=== PATIENT | female | born 1940 | race Caucasian/White ===

== ENCOUNTER 2024-10-07 11:51 | Inpatient (IN) | payer MEDICARE, SELFPAY ==
[2024-10-07] VITALS (14 sets, daily range): BP systolic 94–126; BP diastolic 54–77; PULSE 61–75; RESP 18–22; TEMP 36.4–37.1; O2SAT 97–100; BMI 30.7
--- NOTE | ~2024-10-07 | CT_ITS ---
EXAMINATION: CT brain wo con DATE: 10/07/2024 13:31 INDICATION: Headache TECHNIQUE: Computed tomography (CT) of the head was performed without intravenous contrast. Sagittal and coronal reconstructions were performed. The mA was adjusted according to patient size. Iterative reconstruction technique was employed. The dose-length product was 605.33 mGy-cm. COMPARISON: None FINDINGS: No acute intracranial hemorrhage, acute infarction or abnormal extra axial fluid collection. Small ol d lacunar infarct at the left basal ganglia. There is mild scattered white matter hypoattenuation con sistent with chronic small vessel ischemic disease. Symmetric prominence of the sulci and ventricles consistent with mild moderate age-appropriate diffuse cerebral volume loss. No mass/mass effect. Katarina nges of bilateral intraocular lens replacement. The orbits and mastoid air cells are normal. No mucos al thickening in the anterior right ethmoid sinus. IMPRESSION: 1. 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 No acute intracranial process. 2. Age-related changes including mild to moderate diffuse on loss and mild scattered white matter hyp oattenuation consistent with chronic small vessel ischemic disease. Reviewed, dictated and finalized at location B. 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 No acute intracranial process. 2. Age-related changes including mild to moderate diffuse on loss and mild scat tered white matter hypoattenuation consistent with chronic small vessel ischemi c disease.
--- NOTE | ~2024-10-07 | XR_ITS ---
EXAMINATION: XR chest 2V DATE: 10/07/2024 13:37 INDICATION: Shortness of breath. TECHNIQUE: Frontal and lateral views of the chest were obtained. COMPARISON: None. FINDINGS: The lung volumes are normal. There is a diffuse interstitial pattern in the lungs. No pleur al effusion or pneumothorax. The heart size is normal. IMPRESSION: 1. Interstitial pattern in the lungs, consistent with mild pulmonary edema versus chronic interstitia l lung disease. Reviewed, dictated and finalized at location A. [facility] IMPRESSION: 1. Interstitial pattern in the lungs, consistent with mild pulmonary edema vers us chronic interstitial lung disease.
--- NOTE | 2024-10-07 13:18 | ED.SOB ---
HPI - SOB/Dyspnea General Chief Complaint: Shortness of Breath/Dyspnea <Christianne Valerio PA-C - Last Filed: 10/08/24 10:08> Stated Complaint: SOB, h/a <Christianne Valerio PA-C - Last Filed: 10/08/24 10:08> Time Seen by Provider: 10/07/24 13:18 <Christianne Valerio PA-C - Last Filed: 10/08/24 10:08> Focused HPI: This is a 84 year old female that presents to the ER for headache. Ongoing intermittently since last night. She took Ibuprofen last night. Reports she woke up this morning grabbing her head and crying. She has also been short of breath over the last couple of weeks. Concerned for aspiration. GENERAL: Well-appearing, well-nourished, and in no acute distress. HEAD: Normocephalic, atraumatic. CHEST: No respiratory distress. Lung sounds coarse HEART: Regular rate and rhythm.? NEURO: ?Alert and oriented x3. Patient screened in triage and initial orders placed.? ?Additional care and disposition to be based upon?diagnostic testing and treatment. <Christianne Valeiro PA-C - Last Filed: 10/08/24 10:08> History of Present Illness HPI Narrative: Patient is an 84-year-old female presents emergency department with chief complaint of headache and shortness of breath. Patient has been having episodes where she grabs the back behind her ear and states that it hurts the patient also has been more short of breath over the last couple of weeks family is concerned that she may be aspirating. As they have noticed that she coughs more after she eats <Hi Manzo MD - Last Filed: 10/07/24 18:36> Related Data Home Medications: Home Medications ?Medication ?Instructions ?Recorded ?Confirmed ?Last Taken ?Type alendronate 70 mg tablet 70 mg PO WEEKLY 10/07/24 10/07/24 10/07/24 History aspirin 81 mg tablet,delayed 81 mg PO DAILY 10/07/24 10/07/24 10/07/24 History release (Adult Low Dose Aspirin) atorvastatin 40 mg tablet 40 mg PO QHS 10/07/24 10/07/24 10/07/24 History coQ10 (ubiquinol) 100 mg capsule 100 mg PO DAILY 10/07/24 10/07/24 10/07/24 History (Qunol Yonathan CoQ10) donepezil 10 mg tablet 10 mg PO DAILY 10/07/24 10/07/24 10/07/24 History fenofibrate 160 mg tablet 160 mg PO DAILY 10/07/24 10/07/24 10/07/24 History isosorbide mononitrate 30 mg 30 mg PO DAILY 10/07/24 10/07/24 10/07/24 History tablet,extended release 24 hr levothyroxine 88 mcg tablet 88 mcg PO DAILY@0630 10/07/24 10/07/24 10/07/24 History lisinopril 10 mg tablet 10 mg PO DAILY 10/07/24 10/07/24 10/07/24 History memantine 10 mg tablet 20 mg PO DAILY 10/07/24 10/07/24 10/07/24 History metoprolol succinate 25 mg 25 mg PO DAILY 10/07/24 10/07/24 10/07/24 History tablet,extended release 24 hr nifedipine 30 mg tablet,extended 30 mg PO DAILY 10/07/24 10/07/24 10/07/24 History release 24 hr om ocuview 1 cap PO DAILY 10/07/24 10/07/24 10/07/24 History <Christianne Valerio PA-C - Last Filed: 10/08/24 10:08> Review of Systems Review of Systems: A 10 system review of systems was completed on the patient and is negative except for what is stated in the HPI. Nursing and ancillary documentation was reviewed. <Hi Manzo MD - Last Filed: 10/07/24 18:36> [facility] Past Medical History Medical History: Medical History (Updated 10/08/24 @ 10:08 by Christianne Valerio PA-C) Dementia Dyslipidemia Hypertension <Christianne Valerio PA-C - Last Filed: 10/08/24 10:08> Family History Family History: Family History (Updated 10/07/24 @ 22:43 by Kathy Luis, JOSE) Father Alzheimer dementia UTI (urinary tract infection) Mother UTI (urinary tract infection) <Christianne Valerio PA-C - Last Filed: 10/08/24 10:08> Social History Social History: Social History Smoking status: Former smoker Tobacco type: cigarettes Alcohol intake: never Substance use: never Substance use type: does not use Do You Feel Safe in your Home?: Yes Lack of Transportation: No Lack of Food: Never True Current Housing: I Have Housing Concerned About Future Housing: No Difficulty Paying Gas/Electric Bills: No Difficulty Paying for Meds: No Currently Unemployed: No Education: High School Diploma/GED Difficulty w/ Childcare or Family Care: No Spiritual care concerns: No <Christianne Valerio PA-C - Last Filed: 10/08/24 10:08> Exam Narrative: GENERAL: Well-appearing, well-nourished, and in no acute distress. HEAD: Normocephalic, atraumatic. EYES: PERRLA and EOMI. ENT: Nares clear, no rhinorrhea or epistaxis. Mucous membranes moist. NECK: Supple. CHEST: Clear to auscultation. No respiratory distress. HEART: Regular rate and rhythm. No murmur heard. Normal peripheral pulses. ABDOMEN: Soft, nontender, nondistended, normal active bowel sounds. EXTREMITIES: Normal range of motion. No edema. SKIN: Warm, dry, no rash. NEURO: No focal deficits. Alert and oriented to baseline, pleasantly confused. PSYCH: Normal mood and affect. <Hi Manzo MD - Last Filed: 10/07/24 18:36> Course Vital Signs Vital signs: Vital Signs Temperature 97.6 F 10/07/24 11:53 Pulse Rate 75 10/07/24 11:53 Respiratory Rate 18 10/07/24 11:53 Blood Pressure 94/75 L 10/07/24 11:53 Pulse Oximetry 98 10/07/24 11:53 Temperature 98.3 F 10/08/24 05:56 Pulse Rate 60 10/08/24 09:00 Respiratory Rate 20 10/08/24 05:56 Blood Pressure 125/63 10/08/24 05:56 Pulse Oximetry 96 10/08/24 05:56 Oxygen Delivery Room Air 10/07/24 22:41 <Christianne Valerio PA-C - Last Filed: 10/08/24 10:08> Vital Signs Temperature 97.6 F 10/07/24 11:53 Pulse Rate 75 10/07/24 11:53 Respiratory Rate 18 10/07/24 11:53 Blood Pressure 94/75 L 10/07/24 11:53 Pulse Oximetry 98 10/07/24 11:53 Temperature 98.3 F 10/08/24 05:56 Pulse Rate 60 10/08/24 09:00 Respiratory Rate 20 10/08/24 05:56 Blood Pressure 125/63 10/08/24 05:56 Pulse Oximetry 96 10/08/24 05:56 Oxygen Delivery Room Air 10/07/24 22:41 <Hi Manzo MD - Last Filed: 10/07/24 18:36> MDM - SOB/Dyspnea MDM Narrative Medical decision making narrative: EKG showed no acute ischemic changes CT head was obtained that showed1. 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 No acute intracranial process. 2. Age-related changes including mild to moderate diffuse on loss and mild scattered white matter hypoattenuation consistent with chronic small vessel ischemic disease. Chest x-ray showed 1. Interstitial pattern in the lungs, consistent with mild pulmonary edema versus chronic interstitial lung disease COVID flu and RSV were negative Electrolytes showed T BUN of 50 and a creatinine 1.4 troponin was negative with of <Hi Manzo MD - Last Filed: 10/07/24 18:36> Lab Data Result diagrams: 10/08/24 05:45 10/08/24 05:45 <Christianne Valerio PA-C - Last Filed: 10/08/24 10:08> Labs: Lab Results 10/07/24 10/08/24 10/08/24 Range/Units 15:39 03:56 05:45 WBC 10.5 H 7.7 (4.5-10.0) K/mm3 RBC 3.41 L 3.48 L (4.2-5.4) M/mm3 Hgb 11.4 L 11.7 L (12.0-15.0) g/dL Hct 34.5 L 34.7 L (37.0-47.0) % MCV 101.2 H 99.7 (80-100) fl MCH 33.4 33.6 (26-34) pg MCHC 33.0 33.7 (32-36) g/dl RDW 12.4 12.2 (11.5-14.5) % Plt Count 212 207 (150-375) k/mm3 MPV 9.6 9.8 (7.4-10.4) fl Immature Gran % (Auto) 0.6 H 0.4 (0-0.5) % Neut % (Auto) 64.3 54.1 (45.5-73.1) % Lymph % (Auto) 13.2 L 22.2 (18.3-44.2) % Bulloch % (Auto) 20.2 H 19.9 H (2.6-8.5) % Eos % (Auto) 0.9 2.5 (0-4.4) % Baso % (Auto) 0.8 0.9 (0.2-1.2) % Lymph # (Auto) 1.39 1.70 (0.9-3.2) K/mm3 Bulloch # (Auto) 2.1 H 1.5 H (0.1-0.6) K/mm3 Eos # (Auto) 0.1 0.2 (0-0.3) K/mm3 Baso # (Auto) 0.1 0.1 (0.0-0.1) K/mm3 Abs Immat Gran (auto) 0.06 H 0.03 (0.00-0.031) K/mm3 Absolute Neuts (auto) 6.8 H 4.1 (1.3-6.7) K/mm3 Absolute Nucleated RBC 0.000 0.000 (0.0-0.012) K/mm3 Nucleated RBC % 0.0 0.0 (0.0-0.2) % PT 15.9 H (11.1-14.7) Seconds INR 1.2 APTT 30.8 (22.3-36.8) Seconds Sodium 136 L 137 (137-145) mmol/L Potassium 4.6 4.5 (3.4-5.0) mmol/L Chloride 103 104 (98-107) mmol/L Carbon Dioxide 21 L 22 (22-30) mmol/L Anion Gap 12 11 (4-12) mmol/L BUN 50 H 48 H (7-17) mg/dL Creatinine 1.40 H 1.20 H (0.7-1.0) mg/dL Estim Creat Clear Calc 25 29 ml/min Estimated GFR 36 L 43 L (59 - ) Glucose 102 99 (65-110) mg/dL Calcium 9.3 9.2 (8.4-10.2) mg/dL Total Bilirubin 0.6 0.6 (0.2-1.3) mg/dL AST 48 H 54 H (14-36) U/L ALT 45 H 58 H (6-35) U/L Alkaline Phosphatase 49 53 (38-126) U/L Troponin I < 0.012 < 0.012 (0.000-0.034) ng/mL NT-Pro-B Natriuret Pep 1220 H (19.9-100) pg/mL Total Protein 8.0 8.0 (6.3-8.2) g/dL Albumin 4.0 3.9 (3.5-5.1) g/dL Influenza A (RT-PCR) Negative (Negative) Influenza B (RT-PCR) Negative (Negative) RSV (RT-PCR) Negative (Negative) SARS-CoV-2 RNA (RT-PCR) Negative (Negative) <Christianne Valerio PA-C - Last Filed: 10/08/24 10:08> Lab Results 10/07/24 10/08/24 10/08/24 Range/Units 15:39 03:56 05:45 WBC 10.5 H 7.7 (4.5-10.0) K/mm3 RBC 3.41 L 3.48 L (4.2-5.4) M/mm3 Hgb 11.4 L 11.7 L (12.0-15.0) g/dL Hct 34.5 L 34.7 L (37.0-47.0) % MCV 101.2 H 99.7 (80-100) fl MCH 33.4 33.6 (26-34) pg MCHC 33.0 33.7 (32-36) g/dl RDW 12.4 12.2 (11.5-14.5) % Plt Count 212 207 (150-375) k/mm3 MPV 9.6 9.8 (7.4-10.4) fl Immature Gran % (Auto) 0.6 H 0.4 (0-0.5) % Neut % (Auto) 64.3 54.1 (45.5-73.1) % Lymph % (Auto) 13.2 L 22.2 (18.3-44.2) % Bulloch % (Auto) 20.2 H 19.9 H (2.6-8.5) % Eos % (Auto) 0.9 2.5 (0-4.4) % Baso % (Auto) 0.8 0.9 (0.2-1.2) % Lymph # (Auto) 1.39 1.70 (0.9-3.2) K/mm3 Bulloch # (Auto) 2.1 H 1.5 H (0.1-0.6) K/mm3 Eos # (Auto) 0.1 0.2 (0-0.3) K/mm3 Baso # (Auto) 0.1 0.1 (0.0-0.1) K/mm3 Abs Immat Gran (auto) 0.06 H 0.03 (0.00-0.031) K/mm3 Absolute Neuts (auto) 6.8 H 4.1 (1.3-6.7) K/mm3 Absolute Nucleated RBC 0.000 0.000 (0.0-0.012) K/mm3 Nucleated RBC % 0.0 0.0 (0.0-0.2) % PT 15.9 H (11.1-14.7) Seconds INR 1.2 APTT 30.8 (22.3-36.8) Seconds Sodium 136 L 137 (137-145) mmol/L Potassium 4.6 4.5 (3.4-5.0) mmol/L Chloride 103 104 (98-107) mmol/L Carbon Dioxide 21 L 22 (22-30) mmol/L Anion Gap 12 11 (4-12) mmol/L BUN 50 H 48 H (7-17) mg/dL Creatinine 1.40 H 1.20 H (0.7-1.0) mg/dL Estim Creat Clear Calc 25 29 ml/min Estimated GFR 36 L 43 L (59 - ) Glucose 102 99 (65-110) mg/dL Calcium 9.3 9.2 (8.4-10.2) mg/dL Total Bilirubin 0.6 0.6 (0.2-1.3) mg/dL AST 48 H 54 H (14-36) U/L ALT 45 H 58 H (6-35) U/L Alkaline Phosphatase 49 53 (38-126) U/L Troponin I < 0.012 < 0.012 (0.000-0.034) ng/mL NT-Pro-B Natriuret Pep 1220 H (19.9-100) pg/mL Total Protein 8.0 8.0 (6.3-8.2) g/dL Albumin 4.0 3.9 (3.5-5.1) g/dL Influenza A (RT-PCR) Negative (Negative) Influenza B (RT-PCR) Negative (Negative) RSV (RT-PCR) Negative (Negative) SARS-CoV-2 RNA (RT-PCR) Negative (Negative) <Hi Manzo MD - Last Filed: 10/07/24 18:36> Imaging Data Radiologist's impression: ITS Impressions Head CT 10/07/24 13:32 IMPRESSION: 1. 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 No acute intracranial process. 2. Age-related changes including mild to moderate diffuse on loss and mild scattered white matter hypoattenuation consistent with chronic small vessel ischemic disease. Chest X-Ray 10/07/24 13:38 IMPRESSION: 1. Interstitial pattern in the lungs, consistent with mild pulmonary edema versus chronic interstitial lung disease. <Christianne Valerio PA-C - Last Filed: 10/08/24 10:08> Critical Care Time Critical Care Time Critical Care Time: No <Christianne Valerio PA-C - Last Filed: 10/08/24 10:08> Discharge Plan Discharge Clinical Impression: Breath shortness Headache Qualifiers: Headache type: unspecified Headache chronicity pattern: acute headache Intractability: not intractable Qualified Code(s): R51.9 - Headache, unspecified <Christianne Valerio PA-C - Last Filed: 10/08/24 10:08> Patient Disposition: Still a Patient <Christianne Valerio PA-C - Last Filed: 10/08/24 10:08> Condition: Stable <Christianne Valerio PA-C - Last Filed: 10/08/24 10:08> Time of Disposition: 18:35 <Christianne Valerio PA-C - Last Filed: 10/08/24 10:08> 18:35 <Hi Manzo MD - Last Filed: 10/07/24 18:36>
--- NOTE | 2024-10-07 13:20 | ECG_ITS ---
Test Date: 2024-10-07 15:32:45 Measurements Intervals [place] Rate: 63 P: -1 NV: 165 QRS: -18 QRSD: 104 T: -7 QT: 405 QTc: 416 Interpretive Statements SINUS RHYTHM LEFT VENTRICULAR HYPERTROPHY INFERIOR INFARCT, AGE INDETERMINATE BASELINE ARTIFACT- I, II, III, V5 ABNORMAL ECG No previous ECG available for comparison Electronically Signed On 10-07-2024 15:42:29 POOL TECHNICIAN by Neal Samuels D.O.
[2024-10-07 15:47] LABS: Basophils Absolute Auto 0.1 K/mm3 (0.0-0.1); Basophils Percent Auto 0.8 % (0.2-1.2); Eosinophils Absolute Auto 0.1 K/mm3 (0-0.3); Eosinophils Percent Auto 0.9 % (0-4.4); Hematocrit 34.5 % (37.0-47.0); Hemoglobin 11.4 g/dL (12.0-15.0); Immature Granulocyte Absolute 0.06 K/mm3 (0.00-0.031); Immature Granulocyte Percent A 0.6 % (0-0.5); Lymphocytes Absolute Auto 1.39 K/mm3 (0.9-3.2); Lymphocytes Percent Auto 13.2 % (18.3-44.2); Mean Corpuscular Hemoglobin 33.4 pg (26-34); Mean Corpuscular Volume 101.2 fl (80-100); Mean Platelet Volume 9.6 fl (7.4-10.4); Monocytes Absolute Auto 2.1 K/mm3 (0.1-0.6); Monocytes Percent Auto 20.2 % (2.6-8.5); Neutrophils Absolute Auto 6.8 K/mm3 (1.3-6.7); Neutrophils Percent Auto 64.3 % (45.5-73.1); Platelet Count Result 212 k/mm3 (150-375); Red Blood Count 3.41 M/mm3 (4.2-5.4); Red Cell Distribution Width 12.4 % (11.5-14.5); White Blood Count 10.5 K/mm3 (4.5-10.0)
[2024-10-07 15:57] LABS: INR 1.2; Prothrombin Time 15.9 Seconds (11.1-14.7)
[2024-10-07 15:58] LABS: Partial Thromboplastin Time 30.8 Seconds (22.3-36.8)
[2024-10-07 16:02] LABS: Alanine Aminotransferase 45 U/L (6-35); Alkaline Phosphatase 49 U/L (38-126); Anion Gap 12 mmol/L (4-12); Aspartate Amino Transferase 48 U/L (14-36); Bilirubin,Total 0.6 mg/dL (0.2-1.3); Blood Urea Nitrogen 50 mg/dL (7-17); Calcium 9.3 mg/dL (8.4-10.2); Carbon Dioxide 21 mmol/L (22-30); Chloride 103 mmol/L (98-107); Estimated CRCL calculation 25 ml/min; Estimated Glomerular Filt Rate 36; Glucose 102 mg/dL (65-110); Potassium 4.6 mmol/L (3.4-5.0); Sodium 136 mmol/L (137-145)
[2024-10-07 16:08] LABS: NT Pro B Type Natriuretic Pept 1220 pg/mL (19.9-100)
[2024-10-07 16:23] LABS: Influenza A QL RT-PCR Negative (Negative); Influenza B QL RT-PCR Negative (Negative); RSV RNA, RT-PCR Negative (Negative); SARS-CoV-2 RNA PCR Negative (Negative)
--- OUTSIDE RECORDS SUMMARY | 2024-10-07 18:34 | XMS_ITS | Encounter Summary ---
Author Organization [facility] Address [facility] [place] [address] Care Team Providers Care Conformal Pad Former Name Role Phone Jeffery Salinas MD Unavailable [phone] Derick Khalil MD Primary Care Provider Unavailable Arley Menard MD Primary Care Provider [phone] Satish Contreras MD Primary Care Provider [phone] Arley Menard MD Primary Care Provider [phone] Encounter Details Date Type Department Care Team (Late st Contact Info) Description 01/11/2016 Abstract [facility] [address] [place] [address] Jeffery Salinas MD [address] [place] [address] Social History Tobacco Use Types Packs/Day Years Used Date Smoking Tobacco: Former Alcohol Use Standard Drinks/Week Comments No 0 (1 standard drink = 0.6 oz pur e alcohol) Comments Unknown Sex and Gender Information Value Date Recorded Sex Assigned at Not on file Legal Sex Female 9:40 PM CDT Gender Identity Not on file Sexual Orientation Not on file Occupation Industry Job Start Date Job End Date retired Not on file Not on file Not on file documented as of this encounter Plan of Treatment Upcoming Encounters Date Type Department Care Team (Late st Contact Info) Description 01/25/2025 10:30 AM CDT Office Visit [facility] [address] [place] [address] Jeffery Salinas MD [address] [place] [id number] documented as of this encounter Visit Diagnoses Not on filedocumented in this encounter Care Teams Conformal Pad Former Relationship Specialty Start Date End Date Derick Khalil MD [address] [place] [address] PCP - General FAMILY PRACTICE 12/11/16 03/25/18 Arley Menard MD [address] [place] [address] PCP - General FAMILY PRACTICE 03/26/18 06/14/20 Satish Contreras MD [address] [facility] [place] [address] PCP - General FAMILY PRACTICE 06/15/20 02/03/21 Arley Menard MD [address] [place] [address] PCP - General FAMILY PRACTICE 02/04/21 Jeffery Salinas MD [address] [place] [address] [facility] [employer] Instructor CARDIOVASCULAR DISEASE 10/22/16 documented as of this encounter
--- OUTSIDE RECORDS SUMMARY | 2024-10-07 18:34 | XMS_ITS | Encounter Summary ---
Author Organization [facility] Address [facility] [place] [address] Care Team Providers Care Nuclear Worker Technician Name Role Phone Jeffery Salinas MD Unavailable [phone] Derick Khalil MD Primary Care Provider Unavailable Arley Menard MD Primary Care Provider [phone] Satish Contreras MD Primary Care Provider [phone] Arley Menard MD Primary Care Provider [phone] Encounter Details Date Type Department Care Team (Late st Contact Info) Description 12/13/2016 Abstract [facility] [place] [address] [place] [address] Jeffery Salinas MD [address] [place] [address] Social History Tobacco Use Types [...] Description 01/25/2025 10:30 AM CDT Office Visit [facility] [address] [place] [address] Jeffery Salinas MD [address] [place] [address] documented as of this encounter Procedures Procedure Name Priority Date/Time Associated Diagnosis Comments BUN (OUTSIDE LAB) Routine 12/11/2016 documented in this encounter Results * BUN (OUTSIDE LAB) (12/11/2016) BUN 31 CREATININE S/P/B 0.70 0.5 - 1.0 EGFR AFR. AMER. >60 <=90 EGFR NON-AFR. AMER. >60 <=90 12/11/2016 us Doc [facility] Abstract LAB-OUTSIDE/ABSTRACTED Final Result documented in this encounter Visit Diagnoses Not on filedocumented in this encounter Care Teams Nuclear Worker Technician Relationship Specialty Start Date End Date Derick Khalil MD [address] [place] [address] PCP - General FAMILY PRACTICE 12/11/16 03/25/18 Arley Menard MD [address] [place] [address] PCP - General FAMILY PRACTICE 03/26/18 06/14/20 Satish Contreras MD [address] [place] [address] PCP - General FAMILY PRACTICE 06/15/20 02/03/21 Arley Menard MD [address] [place] [address] PCP - General FAMILY PRACTICE 02/04/21 Jeffery Salinas MD [address] [place] [address] [employer] Civil Lawyer CARDIOVASCULAR DISEASE 10/22/16 documented as of this encounter
--- OUTSIDE RECORDS SUMMARY | 2024-10-07 18:34 | XMS_ITS | Clinical Summary ---
Author Organization [facility] Address [facility] [place] [address] Care Team Providers Care Rn Baby Name Role Phone Jeffery Salinas MD Unavailable [phone] Arley Menard MD Primary Care Provider [phone] Allergies Active Allergy Reactions Criticality Noted Date Comments Atorvastatin Myalgias Low 05/01/2016 Ezetimibe-Simvastatin Myalgias Low 05/01/2016 Simvastatin Myalgias Low 05/01/2016 Medications aspirin EC 81 MG tablet Take 1 tablet (81 mg total) by mouth daily. 5 Active Coenzyme Q10 (CO Q-10) 100 MG Cap Take 1 capsule (100 mg total) by mouth daily. 2 Active [place]-3-6-9 Cap Take 2 tablets by mouth nightly. 3 Active alendronate 70 MG tablet Take 1 tablet (70 mg total) by mouth every 7 days. Saturday Active levothyroxine 88 MCG tablet Take 1 tablet (88 mcg total) by mouth every morning. Active multi vitamin/minerals tablet Take 1 tablet by mouth daily. Active isosorbide mononitrate ER 30 MG 24 hr tablet Take 1 tablet (30 mg total) by mouth daily. 90 tablet 3 1 Active metoprolol succinate ER 25 MG 24 hr tablet Take 1 tablet (25 mg total) by mouth daily. 90 tablet 3 1 Active atorvastatin 40 MG tablet Take 1 tablet (40 mg total) by mouth daily. 90 tablet 3 1 Active NIFEdipine XL 30 MG 24 hr tablet Take 1 tablet (30 mg total) by mouth daily. 90 tablet 3 1 Active fenofibrate 160 MG tablet TAKE 1 TABLET BY MOUTH EVERY DAY 90 tablet 2 Active gabapentin (NEURONTIN) 300 MG capsule Take 1 capsule (300 mg total) by mouth. 2 Active PRESERVISION AREDS Tab Take 1 tablet by mouth daily. 3 Active fluticasone propionate (FLONASE) 50 MCG/ACT nasal spray 1 spray by Nasal route. 3 Active memantine (NAMENDA) 10 MG tablet Take 2 tablets (20 mg total) by mouth. 3 Active lisinopril (PRINIVIL) 10 MG tablet Take 1 tablet (10 mg total) by mouth daily. 4 Active donepezil (ARICEPT) 10 MG Tab Take 1 tablet (10 mg total) by mouth daily. 4 Active Active Problems Problem Noted Date Diagnosed Date Encounter to discuss colonoscopy results 021 Occult blood in stools 02/20/2021 Colitis 02/06/2021 Acute diverticulitis 02/03/2021 Gastroesophageal reflux disease without esophagi tis 03/06/2019 Radiculopathy 09/12/2017 Spinal stenosis 09/12/2017 Anemia 01/15/2017 Arthritis 01/15/2017 Precordial pain 11/14/2016 Dizziness 11/14/2016 Exertional angina 11/14/2016 S/P coronary artery stent placement 05/01/2016 PVD (peripheral vascular disease) 05/01/2016 Myocardial infarction ([facility]) 06/17/20 13 Overview (05/01/2016): acute inferior wall myocardial infarction Arrhythmia 12/17/2004 Overview (05/02/2016): 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 for which she underwent several cardio versions Hypertension Hyperlipidemia Coronary artery disease invo lving [place] coronary artery of [place] heart without angina pectoris Hypothyroidism History of nicotine dependence Resolved Problems Problem Noted Date Diagnosed Date Resolved Date 23-polyvalent pneumococcal p olysaccharide vaccine contraindicated as received shingles vaccine within last 4 weeks 04/12/2009 04/28/2019 Overview (05/01/2016): shingles vaccine Encounters Date Type Department Care Team Description 07/24/2024 10:00 AM EMBLEM MAKER Office Visit [facility] [address] [place] [address] Jeffery Salinas MD Follow Up; Coronary Artery Disease; Hypertension 07/24/2024 Travel 07/22/2024 Abstract [facility] BUSINESS OFFICE [address], [place] [id number] Abstract, Doc Pccl from Last 3 Months Family History Medical History Relation Comments triglycerides Brother had triglyceride s more than 3000 arrhythmia Father Heart Maternal Grandfather No Known Problems Maternal Grandmother No Known Problems Mother No Known Problems Paternal Grandfather No Known Problems Paternal Grandmother atrial fibrillation Sister 1 Ovarian Cancer Sister 2 arrhythmia Sister 2 history of arrhy thmia Coronary artery disease Neg Hx Relation Status Comments Brother Father Maternal Grandfather Maternal Grandmother Mother Paternal Grandfather Paternal Grandmother Sister 1 Sister 2 (Age 71) Social History Tobacco Use Types Packs/Day Years Used Date Smoking Tobacco: Former Cigarettes Smokeless Tobacco: Never Alcohol Use Standard Drinks/Week Comments No 0 (1 standard drink = 0.6 oz pur e alcohol) PHQ-2 Answer Date Recorded PHQ-2 Score - If the patient scores above 3, please move on to questions 3-9 0 03/29/2021 Comments No Sex and Gender Information Value Date Recorded Sex Assigned at Not on file Legal Sex Female 9:40 PM CDT Gender Identity Not on file Sexual Orientation Not on file Occupation Industry Job Start Date Job End Date retired Not on file Not on file Not on file Last Filed Vital Signs Vital Sign Reading Time Taken Comments Blood Pressure 120/60 07/24/2024 10:09 AM EMBLEM MAKER Pulse 61 07/24/2024 10:09 AM EMBLEM MAKER Temperature 37 C (98.6 F) 06/26/2021 11:29 AM EMBLEM MAKER Respiratory Rate 16 06/26/2021 12:08 PM EMBLEM MAKER Oxygen Saturation 93% 07/05/2023 9:28 AM EMBLEM MAKER Inhaled Oxygen Concentration - - Weight 74.4 kg (164 lb) 07/24/2024 10:09 AM EMBLEM MAKER Height 157.5 cm (5' 2 ) 07/24/2024 10:09 AM EMBLEM MAKER Body Mass Index 30 07/24/2024 10:09 AM EMBLEM MAKER Plan of Treatment Upcoming Encounters Date Type Department Care Team (Late st Contact Info) Description 01/25/2025 10:30 AM CDT Office Visit [facility] [address] [facility] [place] [address] Jeffery Salinas MD [address] [place] [address] Health Maintenance Due Date Last Done Comments Pneumococcal Vaccine: 65+ Years (1 of 2 - PCV) 1944 DTaP, Tdap and Td Vaccines (1 - Tdap) 1957 Zoster Vaccines (1 of 2) 1988 Annual Medicare Wellness Visit 2003 RSV Immunization or 60+ Years (1 - 1-dose 75+ series) 2013 COVID-19 Vaccine ( season) 2024 05/08/2022, 10/06/2020, 09/08/2020 Influenza Adult (#1) 2024 05/29/2022, 05/01/2021, 05/17/2020, Additional history exists Meningococcal B Vaccine Aged Out No l onger eligible based on patient's age to complete this topic Meningococcal Vaccine Aged Out No emmanuel mariella eligible based on patient's age to complete this topic RSV Immunizations Under 20 Months Aged Out No longer eligible based on patient's age to complete this topic Goals Goal Patient Goal Type Associated Problems Recent Progress Patient-Stated? Author Patient will return to prior living situation and remain independent in ADLs upon discharge from hospital General No Ivelisse Hussein healthcare interpreter Procedure Name Priority Date/Time Associated Diagnosis Comments ELECTROCARDIOGRAM (NON MIDMARK ACQUIRED) Routine 07/24/2024 10:05 AM EMBLEM MAKER Coronary artery disease involving [place] coronary artery of [place] heart without angina pectoris from Last 3 Months Results * ELECTROCARDIOGRAM (07/24/2024 10:05 AM EMBLEM MAKER) 07/24/2024 10:0 5 AM EMBLEM MAKER Narrative [facility] - 07/24/2024 3:33 PM EMBLEM MAKER [facility] Test Date: 2024-07-24 Pat Name: SALOME KUO Department: 111 Room: Gender: Female Legal Paraprofessional: : 1940 Requested By: JEFFERY SALINAS Order Number: [id number] Reading MD: Jeffery Salinas Measurements Intervals [place] Rate: 59 P: 18 ID: [id number] QRS: -11 QRSD: 105 T: 12 QT: 389 QTc: 387 Interpretive Statements SINUS BRADYCARDIA MINIMAL VOLTAGE CRITERIA FOR LVH, CONSIDER NORMAL VARIANT INFERIOR MYOCARDIAL INFARCTION, PROBABLY OLD Unchanged EM MAKER Procedure Note Jeffery Salinas MD - 07/24/2024 [facility] Test Date: 2024-07-24 Pat Name: SALOME SHIELA Department: 111 Room: Gender: Female Legal Paraprofessional: : 1940 Requested By: JEFFERY SALINSA Order Number: [id number] Reading : Jeffery Salinas Measurements Intervals [place] Rate: 59 P: 18 ID: [id number] QRS: -11 QRSD: 105 T: 12 QT: 389 QTc: 387 Interpretive Statements SINUS BRADYCARDIA MINIMAL VOLTAGE CRITERIA FOR LVH, CONSIDER NORMAL VARIANT INFERIOR MYOCARDIAL INFARCTION, PROBABLY OLD Unchanged EM MAKER us Jeffery Salinas MD PROCEDURES-ORDERABLE NO CHARGE Final Result [facility] from Last [address] [address] [place] [address] HE[employer] AND LIFE INSURANCE [employer] [facility] [employer] Advance Directives * Full Code (Latest Code Status on File) Date Activated Date Inactivated Comments 02/03/2021 9:21 PM 02/06/2021 4:41 PM Care Teams Rn Baby Relationship Specialty Start Date End Date Arley Menard MD [address] [place] [phone] PCP - General FAMILY PRACTICE 02/04/21 Jeffery Salinas MD [address] [place] [id number] [facility] CARDIOVASCULAR DISEASE 10/22/16
--- OUTSIDE RECORDS SUMMARY | 2024-10-07 18:34 | XMS_ITS | Encounter Summary ---
Author Organization [facility] Healthcare Address [address] [place] [id number] Care Team Providers Care Quality Assurance Analyst Name Role Phone Arley Menard MD Primary Care Provider + Reason for Visit * Reason Comments Ear Problem Above her right ear she has a sharp shoot pain that comes and goes Encounter Details Date Type Department Care Team (Late st Contact Info) Description 10/07/2024 11:00 AM PROFESSIONAL CASTER Office Visit [facility] [address] [address] Letitia Dykes NP [address] [place] [address] [address] [place] [address] Primary stabbing headache (Primary Dx); Shortness of breath Social History Tobacco Use Types Packs/Day Years Used Date Smoking Tobacco: Never Assessed Comments Unknown Sex and Gender Information Value Date Recorded Sex Assigned at Not on file Legal Sex Female 12:06 PM PROFESSIONAL CASTER Gender Identity Not on file Sexual Orientation Not on file documented as of this encounter Last Filed Vital Signs Vital Sign Reading Time Taken Comments Blood Pressure 120/68 10/07/2024 10:59 AM PROFESSIONAL CASTER Pulse 81 10/07/2024 10:59 AM PROFESSIONAL CASTER Temperature 36.7 C (98.1 F) 10/07/2024 10:59 AM PROFESSIONAL CASTER Respiratory Rate 28 10/07/2024 10:59 AM PROFESSIONAL CASTER Oxygen Saturation 95% 10/07/2024 10:59 AM PROFESSIONAL CASTER Inhaled Oxygen Concentration - - Weight 75.5 kg (166 lb 6.4 oz) 10/07/2024 10:59 AM PROFESSIONAL CASTER Height 157.5 cm (5' 2.01 ) 10/07/2024 10:[address] Body Mass Index 30.43 10/07/2024 10:59 AM PROFESSIONAL CASTER documented in this encounter Progress Notes * Letitia Dykes NP - 10/07/2024 11:00 AM CST Images from the original note were not included. Subjective/Objective Patient ID: Salome Rich is a 84 y.o. female. Chief Complaint Ear Problem (Above her right ear she has a sharp shoot pain that comes and goes) Patient presents to [facility] today with son and ipifvile-zl-gmb who she lives with, for complaints of right-sided head pain that is sharp, and fleeting. Pain started yesterday afternoon. Patient is son and maulqnvi-xb-nom states she had a similar pain a couple weeks ago but it resolved spontaneously within a couple hours. Patient does have history of dementia. Patient's son and aqdtuiqm-jk-sio state that they see her at times grabbing her head and pain. Patient has also had increased shortness of breath over the past couple weeks and having trouble swallowing with eating and choking onfood. Patient coughs a lot when she is trying to eat, with swallowing. Patient's tbonhgyw-zb-qqx states she is also concerned that she seems to be swelling, she had to take her ring off yesterday because it was too tight on her finger. They have not noticed any rash. Patient has no other complaintsor Upper respiratory infection type symptoms. Review of Systems Respiratory: Positive for choking (With eating and swallowing) and shortness of breath. Cardiovascular: + edema Neurological: Positive for headaches. All other systems reviewed and are negative. Physical Exam Vitals and nursing note reviewed. Exam conducted with a cloth picker present. Constitutional: General: She is not in acute distress. Appearance: Normal appearance. HENT: Right Ear: Tympanic membrane, ear canal and external ear normal. Left Ear: Tympanic membrane, ear canal and external ear normal. Cardiovascular: Rate and Rhythm: Normal rate. Pulses: Normal pulses. Pulmonary: Effort: Tachypnea and accessory muscle usage present. Comments: Patient unable to speak in full and complete sentences without visible shortness of breath, pausing to catch breath in sentence. Skin: General: Skin is warm. Findings: No ecchymosis, erythema or rash. Neurological: Mental Status: She is alert. Vitals: 10/07/24 1059 BP: 120/68 Pulse: 81 Resp: 28 Temp: 36.7 ??C (98.1 ??F) SpO2: 95% Weight: 75.5 kg (166 lb 6.4 oz) Height: 157.5 cm (5' 2.01 ) No results found. No past medical history on file. Patient Active Problem List Diagnosis Abnormal lung sounds Acute diverticulitis Acute maxillary sinusitis Age-related nuclear cataract of right eye AMD (age related macular degeneration) Anemia Arrhythmia Arthritis Benign essential HTN Chronic bilateral low back pain with bilateral sciatica Colitis Coronary artery disease involving [place] coronary artery of [place] heart without angina pectoris Dizziness Dry eye syndrome of both eyes Exertional angina (HCC) Facet arthritis, degenerative, lumbar spine Gastroesophageal reflux disease without esophagitis Glaucoma suspect of both eyes Hematemesis Hematochezia Hip pain, chronic, right Hypercholesteremia Hypertension Hypothyroidism Macular cyst, hole, or pseudohole, right eye Memory loss Mixed Alzheimer's and vascular dementia (HCC) Myocardial infarction (HCC) Occult blood in stools Open-angle glaucoma of both eyes, mild stage Precordial pain Pseudophakia Radiculopathy S/P coronary artery stent placement Spinal stenosis Current Outpatient Medications: aspirin 81 mg enteric coated tablet, , Disp: , Rfl: benzonatate (TESSALON) 100 mg capsule, Take 1 capsule (100 mg total) by mouth 3 (three) times a dayas needed for cough, Disp: 42 capsule, Rfl: 0 gabapentin (NEURONTIN) 300 mg capsule, Take 1 capsule (300 mg total) by mouth, Disp: , Rfl: isosorbide mononitrate ER (IMDUR) 30 mg 24 hr tablet, , Disp: , Rfl: levothyroxine (SYNTHROID) 88 mcg tablet, , Disp: , Rfl: lisinopriL (PRINIVIL,ZESTRIL) 10 mg tablet, , Disp: , Rfl: memantine (NAMENDA) 10 mg tablet, , Disp: , Rfl: multivitamin with minerals (Multiple Vitamin-Minerals) tablet, Take 3 tablets by mouth daily, Disp:, Rfl: ubidecarenone (coenzyme Q10) 100 mg tablet, Take 1 tablet by mouth daily, Disp: , Rfl: vitamins A,C,A-fqaf-izihhy (PreserVision AREDS) 2,148 mcg-113 mg-45 mg-17.4mg tablet, Take 1 tabletby mouth daily, Disp: , Rfl: Allergies Allergen Reactions Atorvastatin Muscle pain Social History Tobacco Use Smoking status: None Smokeless tobacco: None Substance and Sexual Activity Drug use: None Sexual activity: None Alcohol Use: Not on file History reviewed. No pertinent surgical history. Assessment/Plan Diagnoses and all orders for this visit: Primary stabbing headache (Primary) Comments: Right side of head Shortness of breath - Discussed with patient, mwtryqhz-wn-zcn, and son my concern for the need for higher level of caredue to sharp stabbing pain in head and shortness of breath. Further evaluation to rule out possiblecauses such as trigeminal neuralgia, aneurysm, shingles, congestive heart failure, etc.. Patient's son and jxnxqmwn-as-nsj states they will take her directly to ED [facility]. Disposition Treatment plan including expectations, follow up, and return precautions discussed with patient/parent, verbalizes understanding. Medication dosage, use, and potential adverse reactions discussed with patient/parent. Advised to follow up with PCP if symptoms do not resolve as expected or sooner if condition worsens. Signs/symptoms warranting ER evaluation reviewed. Patient and/or guardian was given an opportunity to ask questions, questions answered. Letitia Dykes NP This office note has been partially dictated using [employer] software, and as a result portions of the record may have been created with this software. Occasional wrong-word or 'xgxcn-e-siku' substitutions may have occurred due to the inherent limitations of voice recognition software. Read the chartcarefully and recognize, using context, where substitutions have occurred. ESSIONAL CASTER documented in this encounter Plan of Treatment Not on file documented as of this encounter Visit Diagnoses Diagnosis Primary stabbing headache- Primary Shortness of breath documented in this encounter Care Teams Quality Assurance Analyst Relationship Specialty Start Date End Date Arley Menard MD PCP - General Family Practice 10/19/23 documented as of this encounter
--- OUTSIDE RECORDS SUMMARY | 2024-10-07 18:34 | XMS_ITS | Referral Summary ---
Author Organization [facility] [address] [place] Address [address] [place] [address] Care Team Providers Care Electromedical Service Engineer Name Role Phone Arley Menard MD Primary Care Provider + Encounters Date Type Department Care Team Description 10/07/2024 11:00 AM MEDIA CENTER SPECIALIST Office Visit [facility] at [address] [address] Letitia Dykes NP Primary stabbing headache (Primary Dx); Shortness of breath from Last 3 Months Allergies Active Allergy Reactions Criticality Noted Date Comments Atorvastatin Muscle pain Medium 05/01/2016 Medications aspirin 81 mg enteric coated tablet 08/30/2023 Active isosorbide mononitrate ER (IMDUR) 30 mg 24 hr tablet 08/30/2023 Active levothyroxine (SYNTHROID) 88 mcg tablet 08/31/2023 Active lisinopriL (PRINIVIL,ZESTRI L) 10 mg tablet 08/30/2023 Act mohit memantine (NAMENDA) 10 mg tablet 08/29/2023 Active multivitamin with minerals (Multiple Vitamin-Minerals ) tablet Take 3 tablets by mouth daily Active ubidecarenone (coenzyme Q10) 100 mg tablet Take 1 tablet by mouth daily Active vitamins A,C,L-dlzr-ofmso r (PreserVision AREDS) 2,148 mcg-113 mg-45 mg-17.4mg tablet Take 1 tablet by mouth daily 04/17/2023 Active gabapentin (NEURONTIN) 300 mg capsule Take 1 capsule (300 mg total) by mouth 04/19/2022 Active benzonatate (TESSALON) 100 mg capsuleIndicatio ns:Cough Take 1 capsule (100 mg total) by mouth 3 (three) times a day as needed for cough 42 capsule 12/06/2023 Active Active Problems Problem Noted Date Diagnosed Date Coronary artery disease invo lving [place] coronary artery of [place] heart without angina pectoris 10/19/2023 Hypercholesteremia 10/19/2023 Hypertension 10/19/2023 Acute maxillary sinusitis 05/27/2023 Abnormal lung sounds 03/14/2023 Benign essential HTN 03/16/2022 Mixed Alzheimer's and vascular dementia 02/24/20 Hypothyroidism 09/15/2021 Memory loss 09/15/2021 Facet arthritis, degenerative, lumbar spine 03/12 Chronic bilateral low back pain with bilateral s ciatica 03/15/2021 Hip pain, chronic, right 03/15/2021 Occult blood in stools 02/20/2021 Colitis 02/06/2021 Acute diverticulitis 02/03/2021 Hematemesis 02/03/2021 Overview (10/19/2023): Last Assessment & Plan: Secondary to diverticulitis, now resolved. Will monitor for recurrence. Hematochezia 02/03/2021 Overview (10/19/2023): Last Assessment & Plan: Resolved. Will monitor for recurrence. Dry eye syndrome of both eyes 01/01/2020 Overview (10/19/2023): Last Assessment & Plan: Dry Eyes: Explained to patient that dry eyes refers to a combination of decrease tears and decrease oil in the tear film that leads to tear evaporation. Recommend treatment with warm compresses, lid scrubs and artificial tears. Glaucoma suspect of both eyes 01/01/2020 Overview (10/19/2023): Last Assessment & Plan: Pt referred for evaluation of glaucoma. No previous h/o elevated intraocular pressure, per pt she does not recall ever using glaucoma drops. Normal CCT, no family hx. intraocular pressure is stable at 15 14. Patient had difficulty with today's [place] visual field and results are not reliable. OCT RNFL are full and normal CDR on exam. Minimal suspicion of glaucoma at this point, Will continue montior w/o drops for now. -f/u in 1 year for intraocular pressure check and repeat visual field and OCT RNFL. Pseudophakia 01/01/2020 Overview (10/19/2023): Last Assessment & Plan: S/p cataract extraction both eyes, intraocular lens clear and vision stable with correction. Gastroesophageal reflux disease without esophagi tis 03/06/2019 Radiculopathy 09/12/2017 Spinal stenosis 09/12/2017 Anemia 01/15/2017 Arthritis 01/15/2017 AMD (age related macular degeneration) 7 Macular cyst, hole, or pseudohole, right eye Overview (10/19/2023): Last Assessment & Plan: H/o mac pseudohole and dry age-related macular degeneration. Followed by Dr. Inman, no vision changes or distortion subjectively. CPM and f/u as scheduled with retina. Open-angle glaucoma of both eyes, mild stage Dizziness 11/14/2016 Exertional angina 11/14/2016 Precordial pain 11/14/2016 S/P coronary artery stent placement 05/01/2016 Age-related nuclear cataract of right eye 2015 Myocardial infarction 06/17/2013 Overview (10/19/2023): acute inferior wall myocardial infarction Arrhythmia 12/17/2004 Overview (10/19/2023): 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 for which she underwent several cardio versions Social History Tobacco Use Types Packs/Day Years Used Date Smoking Tobacco: Never Assessed Comments Unknown Sex and Gender Information Value Date Recorded Sex Assigned at Not on file Legal Sex Female 12:06 PM MEDIA CENTER SPECIALIST Gender Identity Not on file Sexual Orientation Not on file Last Filed Vital Signs Vital Sign Reading Time Taken Comments Blood Pressure 120/68 10/07/2024 10:59 AM MEDIA CENTER SPECIALIST Pulse 81 10/07/2024 10:59 AM MEDIA CENTER SPECIALIST Temperature 36.7 C (98.1 F) 10/07/2024 10:59 AM MEDIA CENTER SPECIALIST Respiratory Rate 28 10/07/2024 10:59 AM MEDIA CENTER SPECIALIST Oxygen Saturation 95% 10/07/2024 10:59 AM MEDIA CENTER SPECIALIST Inhaled Oxygen Concentration - - Weight 75.5 kg (166 lb 6.4 oz) 10/07/2024 10:59 AM MEDIA CENTER SPECIALIST Height 157.5 cm (5' 2.01 ) 10/07/2024 10:[address] Body Mass Index 30.43 10/07/2024 10:59 AM MEDIA CENTER SPECIALIST Plan of Treatment Not on file Insurance [facility] Care Teams Electromedical Service Engineer Relationship Specialty Start Date End Date Arley Menard MD PCP - General Family Practice 10/19/23
--- OUTSIDE RECORDS SUMMARY | 2024-10-07 18:34 | XMS_ITS | Clinical Summary ---
Author [place] [facility] [place] [address] Address [address] [place] [id number] Care Team Providers Care Auto Research Engineer Name Role Phone Arley Menard MD Primary Care Provider + Allergies Active Allergy Reactions Criticality Noted Date [...] 1 tablet by mouth daily Active vitamins A,C,B-knwi-shlib r (PreserVision AREDS) 2,148 mcg-113 mg-45 mg-17.4mg [...] Diagnosed Date Coronary artery disease invo lving [place] coronary artery of [place] heart without angina pectoris 10/19/2023 Hypercholesteremia 10/19/2023 [...] for which she underwent several cardio versions Encounters Date Type Department Care Team Description 10/07/2024 11:00 AM SYSTEMS SOFTWARE ENGINEER Office Visit [facility] at [address] [phone] Letitia Dykes NP Primary stabbing headache (Primary Dx); Shortness of breath from Last 3 Months Social History Tobacco Use Types Packs/Day Years Used Date Smoking Tobacco: Never Assessed Comments Unknown Sex and Gender Information Value Date Recorded Sex Assigned at Not on file Legal Sex Female 12:06 PM SYSTEMS SOFTWARE ENGINEER Gender Identity Not on file Sexual Orientation Not on file Obstetrics History Last Filed Vital Signs Vital Sign Reading Time Taken Comments Blood Pressure 120/68 10/07/2024 10:59 AM SYSTEMS SOFTWARE ENGINEER Pulse 81 10/07/2024 10:59 AM SYSTEMS SOFTWARE ENGINEER Temperature 36.7 C (98.1 F) 10/07/2024 10:59 AM SYSTEMS SOFTWARE ENGINEER Respiratory Rate 28 10/07/2024 10:59 AM SYSTEMS SOFTWARE ENGINEER Oxygen Saturation 95% 10/07/2024 10:59 AM SYSTEMS SOFTWARE ENGINEER Inhaled Oxygen Concentration - - Weight 75.5 kg (166 lb 6.4 oz) 10/07/2024 10:59 AM SYSTEMS SOFTWARE ENGINEER Height 157.5 cm (5' 2.01 ) 10/07/2024 10:[address] Body Mass Index 30.43 10/07/2024 10:59 AM SYSTEMS SOFTWARE ENGINEER Plan of Treatment Health Maintenance Due Date Last Done Comments Depression Screening 1938 Fall Risk Assessment 1938 DTaP/Tdap/Td Vaccine (1 - Tdap) 1949 Hepatitis B Screening 1956 Pneumococcal vaccine 65+ (1 of 1 - PCV) 1988 Zoster Vaccine (1 of 2) 1988 Well Visit 65+ 2003 Influenza Vaccine (#1) 2024 2, 05/01/2021, 05/17/2020, Additional history exists Insurance [facility] Care Teams Auto Research Engineer Relationship Specialty Start Date End Date Arley Menard MD PCP - General Family Practice 10/19/23
[2024-10-07 18:56] LABS: Troponin I < 0.012 ng/mL (0.000-0.034)
[2024-10-07] MEDS: ACETAMINOPHEN 325 MG TABLET 650 MG PO (19:05)
--- NOTE | 2024-10-07 21:18 | PM.IMHP ---
H&P: HPI History of Present Illness Date/Time: 10/07/24 21:18 Chief Complaint: 1. Shortness of breath 2. 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 She however woke up this morning with repeat headaches; Concurrently she on moderate exertion becomes dyspneic; it is alleviated by rest; associated with a restriction of ADLs. She denies fevers, chills, leg swellings, cough, dizziness, skin/joint changes, wheezing, chest pain, palpitations or LOC. 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 No acute intracranial process. 2. Age-related changes including mild to moderate diffuse on loss and mild scattered white matter hypoattenuation consistent with chronic small vessel ischemic disease CXR: 1. Interstitial pattern in the lungs, consistent with mild pulmonary edema versus chronic interstitial lung disease. WBC 10; Hb 11; MCV 101; PLT 212 Na 136; K 4.6; Cl 103; CO2 21; AG 12; bUN 50; Cr 1.4; GFR 36 AST 48; ALT 45; ALP 49; Troponin: <0.012; BNP 1220 Influenza A/B, RSV, COVID-19: Negative Salome Rich will be admitted, evaluated and managed for fluid overload, GREY, headaches PMFSH Family History Family History (Updated 10/07/24 @ 22:43 by Kathy Luis RN) Father Alzheimer dementia UTI (urinary tract infection) Mother UTI (urinary tract infection) Social History Social History Smoking status: Former smoker Tobacco type: cigarettes Alcohol intake: never Substance use: never Substance use type: does not use Do You Feel Safe in your Home?: Yes Lack of Transportation: No Lack of Food: Never True Current Housing: I Have Housing Concerned About Future Housing: No Difficulty Paying Gas/Electric Bills: No Difficulty Paying for Meds: No Currently Unemployed: No Education: High School Diploma/GED Difficulty w/ Childcare or Family Care: No Spiritual care concerns: No Meds Home Medications and Allergies Home Medications ?Medication ?Instructions ?Recorded ?Confirmed ?Type alendronate 70 mg tablet 70 mg PO WEEKLY 10/07/24 10/07/24 History aspirin 81 mg tablet,delayed 81 mg PO DAILY 10/07/24 10/07/24 History release (Adult Low Dose Aspirin) atorvastatin 40 mg tablet 40 mg PO QHS 10/07/24 10/07/24 History coQ10 (ubiquinol) 100 mg capsule 100 mg PO DAILY 10/07/24 10/07/24 History (Qunol Yonathan CoQ10) donepezil 10 mg tablet 10 mg PO DAILY 10/07/24 10/07/24 History fenofibrate 160 mg tablet 160 mg PO DAILY 10/07/24 10/07/24 History isosorbide mononitrate 30 mg 30 mg PO DAILY 10/07/24 10/07/24 History tablet,extended release 24 hr levothyroxine 88 mcg tablet 88 mcg PO DAILY@0630 10/07/24 10/07/24 History lisinopril 10 mg tablet 10 mg PO DAILY 10/07/24 10/07/24 History memantine 10 mg tablet 20 mg PO DAILY 10/07/24 10/07/24 History metoprolol succinate 25 mg 25 mg PO DAILY 10/07/24 10/07/24 History tablet,extended release 24 hr nifedipine 30 mg tablet,extended 30 mg PO DAILY 10/07/24 10/07/24 History release 24 hr om ocuview 1 cap PO DAILY 10/07/24 10/07/24 History Allergies Allergy/AdvReac Type Severity Reaction Status Date / Time atorvastatin Allergy Intermediate Cramping Verified 10/07/24 15:34 of the Muscles Vital Signs Vital Signs - 24 hr 10/07/24 11:53 10/07/24 15:23 10/07/24 15:33 Temperature 97.6 F 98.1 F Pulse Rate 75 63 65 Respiratory Rate 18 20 20 Blood Pressure 94/75 L 119/54 L Pulse Oximetry 98 100 100 Oxygen Delivery Room Air 10/07/24 15:41 10/07/24 15:41 10/07/24 16:30 Temperature 98.1 F Pulse Rate 61 63 Respiratory Rate 20 19 Blood Pressure 119/54 L Pulse Oximetry 100 100 100 Oxygen Delivery Room Air 10/07/24 16:38 10/07/24 17:00 10/07/24 17:38 Temperature Pulse Rate 62 64 66 Respiratory Rate 20 20 22 H Blood Pressure 108/55 L 124/61 Pulse Oximetry 100 100 Oxygen Delivery 10/07/24 18:30 10/07/24 20:02 Temperature Pulse Rate 68 68 Respiratory Rate 22 H Blood Pressure 105/77 Pulse Oximetry 98 Oxygen Delivery H&P: Results Labs Labs: Short CBC 10/07/24 Range/Units 15:39 WBC 10.5 H (4.5-10.0) K/mm3 Hgb 11.4 L (12.0-15.0) g/dL Hct 34.5 L (37.0-47.0) % Plt Count 212 (150-375) k/mm3 BMP 10/07/24 15:39 Sodium 136 L Potassium 4.6 Chloride 103 Carbon Dioxide 21 L BUN 50 H Creatinine 1.40 H Glucose 102 Calcium 9.3 Cardiac Enzymes 10/07/24 Range/Units 15:39 Troponin I < 0.012 (0.000-0.034) ng/mL Liver Function 10/07/24 Range/Units 15:39 Total Bilirubin 0.6 (0.2-1.3) mg/dL AST 48 H (14-36) U/L ALT 45 H (6-35) U/L Alkaline Phosphatase 49 (38-126) U/L Albumin 4.0 (3.5-5.1) g/dL Assessment and Plan Assessment and plan (1) Headache: Code(s): R51.9 - Headache, unspecified Status: Acute (2) Breath shortness: Code(s): R06.02 - Shortness of breath Status: Acute (3) Fluid overload: Code(s): E87.70 - Fluid overload, unspecified Status: Acute (4) Obesity (BMI 30.0-34.9): Code(s): E66.811 - Obesity, class 1 Status: Acute (5) Dyslipidemia: Code(s): E78.5 - Hyperlipidemia, unspecified Status: Acute (6) Dementia: Code(s): F03.90 - Unspecified dementia, unspecified severity, without behavioral disturbance, psychotic disturbance, mood disturbance, and anxiety Status: Acute (7) Hypertension: Code(s): I10 - Essential (primary) hypertension Status: Acute Plan Acute and principal conditions 1. Dyspnea on exertion 2. Fluid overload 3. Physical decondition 4. Headaches; probably migraines Rx: A. Sumatriptan B. Furosemide; I/O C. Supplemental oxygen with wean as tolerated D. ECHO; IS E. PT eval Rx and eval Chronic and stable conditions 1. Dyslipidemia. 2. Dementia. 3. Hypothyroidism. 4. Hypertension. Miscellaneous care. 1. Code status. DNR 2. VTE prophylaxis. SCDs; WEN 3. Nutrition. Heart healthy
[2024-10-07] MEDS: FUROSEMIDE INJ 40 MG/4 ML VIAL 20 MG IV PUSH (22:26)
[2024-10-07] MEDS: HEPARIN SODIUM 5,000 UNITS/ML VIAL 5000 UNITS SUB-Q (22:26)
[2024-10-07] MEDS: SUMAtriptan SUCCINATE 25 MG TABLET PO (22:26)
[2024-10-08] VITALS (11 sets, daily range): BP systolic 119–130; BP diastolic 56–69; PULSE 55–83; RESP 19–20; TEMP 36.7–37.6; O2SAT 94–97
[2024-10-08 04:23] LABS: Troponin I < 0.012 ng/mL (0.000-0.034)
[2024-10-08] MEDS: ACETAMINOPHEN 325 MG TABLET 650 MG PO ×2 (05:38→18:15)
[2024-10-08] MEDS: LEVOTHYROXINE SODIUM 88 MCG TABLET PO (05:38)
[2024-10-08 06:01] LABS: Basophils Absolute Auto 0.1 K/mm3 (0.0-0.1); Basophils Percent Auto 0.9 % (0.2-1.2); Eosinophils Absolute Auto 0.2 K/mm3 (0-0.3); Eosinophils Percent Auto 2.5 % (0-4.4); Hematocrit 34.7 % (37.0-47.0); Hemoglobin 11.7 g/dL (12.0-15.0); Immature Granulocyte Absolute 0.03 K/mm3 (0.00-0.031); Immature Granulocyte Percent A 0.4 % (0-0.5); Lymphocytes Percent Auto 22.2 % (18.3-44.2); Mean Corpuscular HGB Conc 33.7 g/dl (32-36); Mean Corpuscular Hemoglobin 33.6 pg (26-34); Mean Corpuscular Volume 99.7 fl (80-100); Mean Platelet Volume 9.8 fl (7.4-10.4); Monocytes Absolute Auto 1.5 K/mm3 (0.1-0.6); Monocytes Percent Auto 19.9 % (2.6-8.5); Neutrophils Absolute Auto 4.1 K/mm3 (1.3-6.7); Neutrophils Percent Auto 54.1 % (45.5-73.1); Platelet Count Result 207 k/mm3 (150-375); Red Blood Count 3.48 M/mm3 (4.2-5.4); Red Cell Distribution Width 12.2 % (11.5-14.5); White Blood Count 7.7 K/mm3 (4.5-10.0)
[2024-10-08 06:26] LABS: Alanine Aminotransferase 58 U/L (6-35); Albumin Level 3.9 g/dL (3.5-5.1); Alkaline Phosphatase 53 U/L (38-126); Anion Gap 11 mmol/L (4-12); Aspartate Amino Transferase 54 U/L (14-36); Bilirubin,Total 0.6 mg/dL (0.2-1.3); Blood Urea Nitrogen 48 mg/dL (7-17); Calcium 9.2 mg/dL (8.4-10.2); Carbon Dioxide 22 mmol/L (22-30); Chloride 104 mmol/L (98-107); Estimated CRCL calculation 29 ml/min; Estimated Glomerular Filt Rate 43; Glucose 99 mg/dL (65-110); Potassium 4.5 mmol/L (3.4-5.0); Sodium 137 mmol/L (137-145)
--- NOTE | 2024-10-08 07:03 | PM.IMPN ---
Progress Note: A&P Assessment and Plan (1) Headache: Code(s): R51.9 - Headache, unspecified Status: Acute Assessment and Plan: ##migraine vs cluster --> sumitriptan --> MRI IMPRESSION: Old lacunar infarct in the left basal ganglia. 2. Moderate nonspecific cerebral white matter disease and pontine disease, which likely represents chronic small vessel ischemic disease. (2) Breath shortness: Code(s): R06.02 - Shortness of breath Status: Acute Assessment and Plan: ## r/t fluid overload? --> supplement oxygen per protocol keep sats above 90% -->CXR: 1. Interstitial pattern in the lungs, consistent with mild pulmonary edema versus chronic interstitial lung disease. --> repeat cxr in am (3) Fluid overload: Code(s): E87.70 - Fluid overload, unspecified Status: Acute Assessment and Plan: ## r/o congestive heart failure, --> Furosemide IV as ordered -trend labs - watch renal function, BNP -->ECHO as ordered - will await results -->Supplemental oxygen with wean as tolerated (4) Obesity (BMI 30.0-34.9): Code(s): E66.811 - Obesity, class 1 Status: Acute Assessment and Plan: speech therapy to eval and treat (5) Dyslipidemia: Code(s): E78.5 - Hyperlipidemia, unspecified Status: Inactive Assessment and Plan: continue home medications (6) Dementia: Code(s): F03.90 - Unspecified dementia, unspecified severity, without behavioral disturbance, psychotic disturbance, mood disturbance, and anxiety Status: Inactive Assessment and Plan: ##MRI hussein - r/o CVA or abnormality --> IMPRESSION:1. Old lacunar infarct in the left basal ganglia. 2. Moderate nonspecific cerebral white matter disease and pontine disease, which likely represents chronic small vessel ischemic disease. --> PT/OT eval and treat -->speech therapy eval and treat (7) Hypertension: Code(s): I10 - Essential (primary) hypertension Status: Inactive Assessment and Plan: contnue home medications Plan Acute and principal conditions 1. Dyspnea on exertion 2. Fluid overload 3. Physical decondition 4. Headaches; probably migraines Chronic and stable conditions 1. Dyslipidemia. 2. Dementia. 3. Hypothyroidism. 4. Hypertension. Miscellaneous care. 1. Code status. DNR 2. VTE prophylaxis. SCDs; WEN 3. Nutrition. Heart healthy Time Spent With Patient Time with patient: Greater than 35 minutes (45 minutes) Subjective Date/time seen: 10/08/24 07:03 Interval history: This is a 84 yo F with a mHx significant for obesity, Dyslipidemia, dementia, dyslipidemia, Hypothyroidism, Hypertension, Osteoporosis Patient this am denies headache, fevers, chills, leg swellings, cough, dizziness, skin/joint changes, wheezing, chest pain, palpitations or active distress. patient reports feeling very tired. Patient reports she is still short of breath with ambulation. Denies any active cough currently. Review of Systems Review of Systems: All systems reviewed & are unremarkable except as noted in HPI and below Constitutional: Constitutional: Reports as per HPI and Reports no additional constitutional complaints Eyes: Eyes: Reports as per HPI and Reports no additional eye complaints ENT: Reports system reviewed and no additional complaints, except as documented Cardiovascular: Cardiovascular: Reports as per HPI and Reports no additional cardiovascular complaints Respiratory: Respiratory: Reports as per HPI, Reports no additional respiratory complaints and Reports dyspnea Gastrointestinal: Gastrointestinal: Reports as per HPI and Reports no additional gastrointestinal complaints Genitourinary: Genitourinary: Reports no additional female genitourinary complaints Musculoskeletal: Musculoskeletal: Reports no additional musculoskeletal complaints Integumentary/Breasts: Skin/Breast: Reports system reviewed and no additional complaints, except as docu Neurologic: Reports system reviewed and no additional complaints, except as documented Psychiatric: Psychiatric: Reports no additional psychiatric complaints Exam Const: General: cooperative, no acute distress, alert and awake Orientation/consciousness: oriented to person and oriented to place HENMT: Head: normal to inspection and normocephalic Eyes: General: appearance normal, both eyes and all related structures Neck: Neck: full ROM, no lymphadenopathy and supple Chest: Chest palpation & inspection: normal inspection of the chest Resp: Effort & Inspection: normal respiratory effort Auscultation: diminished lung sounds bilateral in the lower lung barnes Cardio: Rate: regular rate Rhythm: regular rhythm Heart sounds: S1 normal heart sound present and S2 normal heart sound present Peripheral pulses: Peripheral pulses 2+ throughout GI: Inspection: normal to inspection GI Palp: Yes Soft to palpation Skin: General skin exam: normal color and no rashes or lesions noted Neuro: General: oriented to person and oriented to place Cranial nerves: Yes CN's II-XII intact bilaterally Speech: normal speech Gait exam (Neuro): Unable to assess gait Sensory Exam: normal sensation Extrem: General: normal to inspection and capillary refill normal Psych: Appearance: grossly normal Affect: normal affect Attitude: cooperative Objective Data Vital Signs Vital Signs: Vital Signs - 24 hr 10/07/24 11:53 10/07/24 15:23 10/07/24 15:33 Temperature 97.6 F 98.1 F Pulse Rate 75 63 65 Respiratory Rate 18 20 20 Blood Pressure 94/75 L 119/54 L Pulse Oximetry 98 100 100 Oxygen Delivery Room Air 10/07/24 15:41 10/07/24 15:41 10/07/24 16:30 Temperature 98.1 F Pulse Rate 61 63 Respiratory Rate 20 19 Blood Pressure 119/54 L Pulse Oximetry 100 100 100 Oxygen Delivery Room Air 10/07/24 16:38 10/07/24 17:00 10/07/24 17:38 Temperature Pulse Rate 62 64 66 Respiratory Rate 20 20 22 H Blood Pressure 108/55 L 124/61 Pulse Oximetry 100 100 Oxygen Delivery 10/07/24 18:30 10/07/24 20:02 10/07/24 22:00 Temperature Pulse Rate 68 68 69 Respiratory Rate 22 H 20 Blood Pressure 105/77 109/73 Pulse Oximetry 98 99 Oxygen Delivery 10/07/24 22:40 10/07/24 22:41 10/07/24 22:55 Temperature Pulse Rate 71 69 Respiratory Rate 20 Blood Pressure 109/73 Pulse Oximetry 99 Oxygen Delivery Room Air 10/07/24 23:07 10/08/24 00:00 10/08/24 04:00 Temperature 98.7 F Pulse Rate 73 67 73 Respiratory Rate 22 H Blood Pressure 126/72 Pulse Oximetry 97 Oxygen Delivery 10/08/24 05:56 Temperature 98.3 F Pulse Rate 74 Respiratory Rate 20 Blood Pressure 125/63 Pulse Oximetry 96 Oxygen Delivery Intake/Output Intake/Output: Intake & Output 10/05/24 10/06/24 10/07/24 10/08/24 23:59 23:59 23:59 23:59 Intake Total 250 Output Total 100 650 Balance -100 -400 Meds/Results Medications: Active Medications Generic Name Dose Route Start Last Admin Trade Name Freq PRN Reason Stop Dose Admin Acetaminophen 650 mg 10/07/24 18:31 10/08/24 05:38 Acetaminophen 325 Mg Tablet PO 650 mg Q4H PRN Administration Mild Pain (1-3) or Fever Albuterol/Ipratropium 3 ml 10/07/24 21:09 Ipratropium 0.5 Mg/Albuterol Sulfate 2.5 Mg Ampul.Neb 3 Ml INHALATION Q4HRT PRN shortness of breath/Wheezing Aspirin 81 mg 10/08/24 09:00 Aspirin 81 Mg Enteric Tablet PO DAILY [facility] Donepezil HCl 10 mg 10/08/24 09:00 Donepezil Hcl 10 Mg Tablet PO DAILY WEN Fenofibrate 160 mg 10/08/24 09:00 Fenofibrate 160 Mg Tablet PO DAILY WEN Furosemide 20 mg 10/07/24 21:15 10/07/24 22:26 Furosemide Inj 40 Mg/4 Ml Vial IV PUSH 20 mg BID WEN Administration Guaifenesin/Dextromethorphan 10 ml 10/07/24 21:09 Guaifenesin/Dextromethorphan 10 Ml Udc PO Q4H PRN Cough Heparin Sodium (Porcine) 5,000 units 10/07/24 21:20 10/07/24 22:26 Heparin Sodium 5,000 Units/Ml Vial SUB-Q 5,000 units Q12HR WEN Administration Levothyroxine Sodium 88 mcg 10/08/24 06:30 10/08/24 05:38 Levothyroxine Sodium 88 Mcg Tablet PO 88 mcg DAILY@0630 WEN Administration Melatonin 5 mg 10/07/24 21:09 Melatonin 5 Mg Tablet PO HS PRN Insomnia Memantine 20 mg 10/08/24 09:00 Memantine 10 Mg Tablet PO DAILY [facility] Metoprolol Succinate 25 mg 10/08/24 09:00 Metoprolol Succinate Ext Rel 25 Mg Tabcr PO DAILY [facility] Nifedipine 30 mg 10/08/24 09:00 Nifedipine 30 Mg Tab.Er.24 PO DAILY [facility] Perflutren Lipid Microsphere 0 ml 10/07/24 18:31 Perflutren Lipid Microspheres 1.5 Ml Vial Diluted To 10 Ml Total Volume IV PUSH 10/10/24 18:33 ONCE PRN adequate visualization Protocol Perflutren Lipid Microsphere 0 ml 10/07/24 21:13 Perflutren Lipid Microspheres 1.5 Ml Vial Diluted To 10 Ml Total Volume IV PUSH 10/10/24 21:13 ONCE PRN adequate visualization Protocol Prochlorperazine Edisylate 10 mg 10/07/24 21:09 Prochlorperazine Edisylate 10 Mg/2 Ml Vial IV PUSH Q6H PRN Nausea And Vomiting Radiology Results: ITS Impressions Head CT 10/07/24 13:32 IMPRESSION: 1. 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 No acute intracranial process. 2. Age-related changes including mild to moderate diffuse on loss and mild scattered white matter hypoattenuation consistent with chronic small vessel ischemic disease. Chest X-Ray 10/07/24 13:38 IMPRESSION: 1. Interstitial pattern in the lungs, consistent with mild pulmonary edema versus chronic interstitial lung disease. Labs Labs: Laboratory Results - last 24 hr 10/07/24 10/08/24 10/08/24 15:39 03:56 05:45 WBC 10.5 H 7.7 RBC 3.41 L 3.48 L Hgb 11.4 L 11.7 L Hct 34.5 L 34.7 L MCV 101.2 H 99.7 MCH 33.4 33.6 MCHC 33.0 33.7 RDW 12.4 12.2 Plt Count 212 207 MPV 9.6 9.8 Immature Gran % (Auto) 0.6 H 0.4 Neut % (Auto) 64.3 54.1 Lymph % (Auto) 13.2 L 22.2 Greer % (Auto) 20.2 H 19.9 H Eos % (Auto) 0.9 2.5 Baso % (Auto) 0.8 0.9 Lymph # (Auto) 1.39 1.70 Greer # (Auto) 2.1 H 1.5 H Eos # (Auto) 0.1 0.2 Baso # (Auto) 0.1 0.1 Abs Immat Gran (auto) 0.06 H 0.03 Absolute Neuts (auto) 6.8 H 4.1 Absolute Nucleated RBC 0.000 0.000 Nucleated RBC % 0.0 0.0 PT 15.9 H INR 1.2 APTT 30.8 Sodium 136 L 137 Potassium 4.6 4.5 Chloride 103 104 Carbon Dioxide 21 L 22 Anion Gap 12 11 BUN 50 H 48 H Creatinine 1.40 H 1.20 H Estim Creat Clear Calc 25 29 Estimated GFR 36 L 43 L Glucose 102 99 Calcium 9.3 9.2 Total Bilirubin 0.6 0.6 AST 48 H 54 H ALT 45 H 58 H Alkaline Phosphatase 49 53 Troponin I < 0.012 < 0.012 NT-Pro-B Natriuret Pep 1220 H Total Protein 8.0 8.0 Albumin 4.0 3.9 Influenza A (RT-PCR) Negative Influenza B (RT-PCR) Negative RSV (RT-PCR) Negative SARS-CoV-2 RNA (RT-PCR) Negative Quality VTE Prophylaxis VTE prophylaxis: mechanical ordered Hospitalist MIPS Advance Care Plan I have confirmed that the patient's Advanced Care Plan is present, code status is documented, or surrogate decision maker is listed in patient medical record.: Yes Medication Reconciliation I have utilized all available resources to obtain, update and review the patients current medications (includes all prescriptions, OTC, herbals, cannabis, and nutritional supplements).: Yes
[2024-10-08] MEDS: HEPARIN SODIUM 5,000 UNITS/ML VIAL 5000 UNITS SUB-Q ×2 (08:59→21:08)
[2024-10-08] MEDS: FUROSEMIDE INJ 40 MG/4 ML VIAL 20 MG IV PUSH ×2 (08:59→16:49)
[2024-10-08] MEDS: METOPROLOL SUCCINATE EXT REL 25 MG TABCR PO (09:00)
[2024-10-08] MEDS: ASPIRIN 81 MG ENTERIC TABLET PO (09:00)
[2024-10-08] MEDS: MEMANTINE 10 MG TABLET 20 MG PO (09:01)
[2024-10-08] MEDS: NIFEdipine 30 MG TAB.ER.24 PO (09:01)
[2024-10-08] MEDS: FENOFIBRATE 160 MG TABLET PO (09:01)
[2024-10-08] MEDS: DONEPEZIL HCL 10 MG TABLET PO (09:01)
[2024-10-08] MEDS: PERFLUTREN LIPID MICROSPHERES 1.5 ML VIAL DILUTED TO 10 ML TOTAL VOLUME IV PUSH (10:50)
--- NOTE | 2024-10-08 11:00 | IVDEFINITY ---
Prior to administration of IV Definity the patient was educated on the risks and benefits of the imaging enhancing agent including potential adverse side effects. The patient verbalized understanding. Allergies were verified. No exclusion criteria were identified and at least one of the following inclusion criteria were met: 1) physician request, 2) patient technically difficult to image (per the [place] [employer] guidelines of two or more segments not discernable within the apical view), or 3) questionable left ventricular function. ?
--- NOTE | 2024-10-08 11:34 | PCSTNOTE ---
Please refer to the Bedside Swallow Evaluation in the EMR. Please note, silent aspiration cannot be ruled out at bedside.
[2024-10-08] MEDS: ATORVASTATIN 40 MG TABLET PO (20:59)
[2024-10-09] VITALS (11 sets, daily range): BP systolic 100–126; BP diastolic 49–66; PULSE 51–104; RESP 18–20; TEMP 36.5–36.7; O2SAT 97–98
[2024-10-09] MEDS: LEVOTHYROXINE SODIUM 88 MCG TABLET PO (04:56)
[2024-10-09 05:18] LABS: Basophils Absolute Auto 0.1 K/mm3 (0.0-0.1); Basophils Percent Auto 1.3 % (0.2-1.2); Eosinophils Absolute Auto 0.3 K/mm3 (0-0.3); Eosinophils Percent Auto 4.6 % (0-4.4); Hematocrit 33.6 % (37.0-47.0); Hemoglobin 11.5 g/dL (12.0-15.0); Immature Granulocyte Absolute 0.05 K/mm3 (0.00-0.031); Immature Granulocyte Percent A 0.7 % (0-0.5); Lymphocytes Absolute Auto 1.95 K/mm3 (0.9-3.2); Lymphocytes Percent Auto 28.7 % (18.3-44.2); Mean Corpuscular HGB Conc 34.2 g/dl (32-36); Mean Corpuscular Hemoglobin 33.7 pg (26-34); Mean Corpuscular Volume 98.5 fl (80-100); Mean Platelet Volume 9.6 fl (7.4-10.4); Monocytes Absolute Auto 1.4 K/mm3 (0.1-0.6); Monocytes Percent Auto 20.3 % (2.6-8.5); Neutrophils Percent Auto 44.4 % (45.5-73.1); Platelet Count Result 222 k/mm3 (150-375); Red Blood Count 3.41 M/mm3 (4.2-5.4); Red Cell Distribution Width 12.1 % (11.5-14.5); White Blood Count 6.8 K/mm3 (4.5-10.0)
[2024-10-09 05:41] LABS: NT Pro B Type Natriuretic Pept 277 pg/mL (19.9-100)
[2024-10-09 05:48] LABS: Alanine Aminotransferase 54 U/L (6-35); Albumin Level 3.8 g/dL (3.5-5.1); Alkaline Phosphatase 53 U/L (38-126); Anion Gap 12 mmol/L (4-12); Aspartate Amino Transferase 41 U/L (14-36); Bilirubin,Total 0.5 mg/dL (0.2-1.3); Blood Urea Nitrogen 60 mg/dL (7-17); Calcium 9.4 mg/dL (8.4-10.2); Carbon Dioxide 22 mmol/L (22-30); Chloride 104 mmol/L (98-107); Estimated CRCL calculation 30 ml/min; Estimated Glomerular Filt Rate 46; Glucose 96 mg/dL (65-110); Magnesium 2.1 mg/dL (1.6-2.3); Potassium 4.1 mmol/L (3.4-5.0); Sodium 138 mmol/L (137-145)
--- NOTE | 2024-10-09 07:13 | PM.IMPN ---
Progress Note: A&P Assessment and Plan (1) Headache: Qualifiers: Headache chronicity pattern: acute headache Headache type: unspecified Intractability: not intractable Qualified Code(s): R51.9 - Headache, unspecified Code(s): R51.9 - Headache, unspecified Status: Acute Assessment and Plan: ##migraine vs cluster --> sumitriptan --> MRI IMPRESSION: Old lacunar infarct in the left basal ganglia. 2. Moderate nonspecific cerebral white matter disease and pontine disease, which likely represents chronic small vessel ischemic disease. (2) Breath shortness: Code(s): R06.02 - Shortness of breath Status: Acute Assessment and Plan: ## r/t fluid overload? --> supplement oxygen per protocol keep sats above 90% -->CXR: 1. Interstitial pattern in the lungs, consistent with mild pulmonary edema versus chronic interstitial lung disease. --> repeat cxr in am (3) Fluid overload: Code(s): E87.70 - Fluid overload, unspecified Status: Acute Assessment and Plan: ## r/o congestive heart failure, --> Furosemide IV as ordered -trend labs - watch renal function, BNP - 277 today -->ECHO as ordered - Left ventricular chamber dimension is normal. 2. Left ventricular systolic function is lower limits of normal, estimated at 50-55%. 3. There is moderately increased left ventricular wall thickness. 4. The left ventricular diastolic function is grade I diastolic dysfunction. 5. Right ventricular systolic function is normal. 6. Left atrial chamber dimension is moderately enlarged. 7. The mitral valve annulus is severely calcified. 8. There is mild mitral valve regurgitation. 9. There is mild tricuspid valve regurgitation. 10. Normal inferior vena cava with >50% collapse upon inspiration consistent with normal right atrial pressure, 3 mmHg. -->Supplemental oxygen with wean as tolerated (4) Obesity (BMI 30.0-34.9): Code(s): E66.811 - Obesity, class 1 Status: Acute Assessment and Plan: ##speech therapy to eval and treat - has some difficulty and cough after pudding. ##barium swallow today for evaluation of aspiration. - will review results. (5) Dyslipidemia: Code(s): E78.5 - Hyperlipidemia, unspecified Status: Inactive Assessment and Plan: -continue home medications (6) Dementia: Code(s): F03.90 - Unspecified dementia, unspecified severity, without behavioral disturbance, psychotic disturbance, mood disturbance, and anxiety Status: Inactive Assessment and Plan: ##MRI hussein - r/o CVA or abnormality --> IMPRESSION:1. Old lacunar infarct in the left basal ganglia. 2. Moderate nonspecific cerebral white matter disease and pontine disease, which likely represents chronic small vessel ischemic disease. --> PT/OT eval and treat -->speech therapy eval and treat (7) Hypertension: Code(s): I10 - Essential (primary) hypertension Status: Inactive Assessment and Plan: continue home medications Plan 1. Code status. DNR 2. VTE prophylaxis. SCDs; WEN 3. Nutrition. Heart healthy Subjective Date/time seen: 10/09/24 07:13 Interval history: This is a 84 yo F with a mHx significant for obesity, Dyslipidemia, dementia, dyslipidemia, Hypothyroidism, Hypertension, Osteoporosis Patient this am denies headache, fevers, chills, leg swellings, cough, dizziness, skin/joint changes, wheezing, chest pain, palpitations or active distress. patient reports feeling very tired. Patient reports she is still short of breath with ambulation. Denies any active cough currently. has barium swallow today. Reports she has been coughing after eating for a long time, does not feel choked. Review of Systems Review of Systems: All systems reviewed & are unremarkable except as noted in HPI and below Constitutional: Constitutional: Reports as per HPI and Reports no additional constitutional complaints Eyes: Eyes: Reports as per HPI and Reports no additional eye complaints ENT: Reports system reviewed and no additional complaints, except as documented Cardiovascular: Cardiovascular: Reports as per HPI, Reports no additional cardiovascular complaints and Reports dyspnea Respiratory: Respiratory: Reports as per HPI, Reports no additional respiratory complaints and Reports dyspnea Gastrointestinal: Gastrointestinal: Reports as per HPI and Reports no additional gastrointestinal complaints Genitourinary: Genitourinary: Reports no additional female genitourinary complaints Musculoskeletal: Musculoskeletal: Reports no additional musculoskeletal complaints Integumentary/Breasts: Skin/Breast: Reports system reviewed and no additional complaints, except as docu Neurologic: Reports system reviewed and no additional complaints, except as documented Psychiatric: Psychiatric: Reports no additional psychiatric complaints Exam Const: General: cooperative, no acute distress, alert and awake Orientation/consciousness: oriented to person and oriented to place HENMT: Head: normal to inspection and normocephalic Eyes: General: appearance normal, both eyes and all related structures Neck: Neck: full ROM, no lymphadenopathy and supple Chest: Chest palpation & inspection: normal inspection of the chest Resp: Effort & Inspection: normal respiratory effort Auscultation: diminished lung sounds bilateral in the lower lung barnes Cardio: Rate: regular rate Rhythm: regular rhythm Heart sounds: S1 normal heart sound present and S2 normal heart sound present Peripheral pulses: Peripheral pulses 2+ throughout GI: Inspection: normal to inspection Skin: General skin exam: normal color and no rashes or lesions noted Neuro: General: oriented to person, oriented to place and Unable to assess gait Cranial nerves: Yes CN's II-XII intact bilaterally Speech: normal speech Gait exam (Neuro): Unable to assess gait Sensory Exam: normal sensation Extrem: General: normal to inspection and capillary refill normal Psych: Appearance: grossly normal Affect: normal affect Attitude: cooperative Objective Data Vital Signs Vital Signs: Vital Signs - 24 hr 10/08/24 08:04 10/08/24 09:00 10/08/24 09:01 Temperature Pulse Rate 66 60 Respiratory Rate 20 Blood Pressure Pulse Oximetry 96 Oxygen Delivery Room Air 10/08/24 12:01 10/08/24 14:03 10/08/24 16:00 Temperature 98.0 F Pulse Rate 55 L 65 58 L Respiratory Rate 19 Blood Pressure 130/56 L Pulse Oximetry 97 Oxygen Delivery 10/08/24 20:00 10/08/24 20:00 10/08/24 20:24 Temperature 99.6 F Pulse Rate 83 69 83 Respiratory Rate 20 20 Blood Pressure 119/69 Pulse Oximetry 94 94 Oxygen Delivery Room Air 10/09/24 00:00 10/09/24 04:00 10/09/24 04:29 Temperature 97.9 F Pulse Rate 57 L 51 L 104 H Respiratory Rate 20 Blood Pressure 126/49 L Pulse Oximetry 98 Oxygen Delivery Intake/Output Intake/Output: Intake & Output 10/06/24 10/07/24 10/08/24 10/09/24 23:59 23:59 23:59 23:59 Intake Total 1880 340 Output Total 100 1250 Balance -100 630 340 Meds/Results Medications: Active Medications Generic Name Dose Route Start Last Admin Trade Name Freq PRN Reason Stop Dose Admin Acetaminophen 650 mg 10/07/24 18:31 10/08/24 18:15 Acetaminophen 325 Mg Tablet PO 650 mg Q4H PRN Administration Mild Pain (1-3) or Fever Albuterol/Ipratropium 3 ml 10/07/24 21:09 Ipratropium 0.5 Mg/Albuterol Sulfate 2.5 Mg Ampul.Neb 3 Ml INHALATION Q4HRT PRN shortness of breath/Wheezing Aspirin 81 mg 10/08/24 09:00 10/08/24 09:00 Aspirin 81 Mg Enteric Tablet PO 81 mg DAILY WEN Administration Atorvastatin Calcium 40 mg 10/08/24 21:00 10/08/24 20:59 Atorvastatin 40 Mg Tablet PO 40 mg QHS WEN Administration Donepezil HCl 10 mg 10/08/24 09:00 10/08/24 09:01 Donepezil Hcl 10 Mg Tablet PO 10 mg DAILY WEN Administration Fenofibrate 160 mg 10/08/24 09:00 10/08/24 09:01 Fenofibrate 160 Mg Tablet PO 160 mg DAILY WEN Administration Furosemide 20 mg 10/07/24 21:15 10/08/24 16:49 Furosemide Inj 40 Mg/4 Ml Vial IV PUSH 20 mg BID WEN Administration Guaifenesin/Dextromethorphan 10 ml 10/07/24 21:09 Guaifenesin/Dextromethorphan 10 Ml Udc PO Q4H PRN Cough Heparin Sodium (Porcine) 5,000 units 10/07/24 21:20 10/08/24 21:08 Heparin Sodium 5,000 Units/Ml Vial SUB-Q 5,000 units Q12HR WEN Administration Isosorbide Mononitrate 30 mg 10/09/24 09:00 Isosorbide Mononitrate 30 Mg Tab.Er.24h PO DAILY WEN Levothyroxine Sodium 88 mcg 10/08/24 06:30 10/09/24 04:56 Levothyroxine Sodium 88 Mcg Tablet PO 88 mcg DAILY@0630 WEN Administration Lisinopril 10 mg 10/09/24 09:00 Lisinopril 10 Mg Tablet PO DAILY WEN Melatonin 5 mg 10/07/24 21:09 Melatonin 5 Mg Tablet PO HS PRN Insomnia Memantine 20 mg 10/08/24 09:00 10/08/24 09:01 Memantine 10 Mg Tablet PO 20 mg DAILY WEN Administration Metoprolol Succinate 25 mg 10/08/24 09:00 10/08/24 09:00 Metoprolol Succinate Ext Rel 25 Mg Tabcr PO 25 mg DAILY WEN Administration Nifedipine 30 mg 10/08/24 09:00 10/08/24 09:01 Nifedipine 30 Mg Tab.Er.24 PO 30 mg DAILY WEN Administration Perflutren Lipid Microsphere 0 ml 10/07/24 21:13 Perflutren Lipid Microspheres 1.5 Ml Vial Diluted To 10 Ml Total Volume IV PUSH 10/10/24 21:13 ONCE PRN adequate visualization Protocol Prochlorperazine Edisylate 10 mg 10/07/24 21:09 Prochlorperazine Edisylate 10 Mg/2 Ml Vial IV PUSH Q6H PRN Nausea And Vomiting Radiology Results: ITS Impressions Head CT 10/07/24 13:32 IMPRESSION: 1. 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 No acute intracranial process. 2. Age-related changes including mild to moderate diffuse on loss and mild scattered white matter hypoattenuation consistent with chronic small vessel ischemic disease. Chest X-Ray 10/07/24 13:38 IMPRESSION: 1. Interstitial pattern in the lungs, consistent with mild pulmonary edema versus chronic interstitial lung disease. Brain MRI 10/08/24 08:48 IMPRESSION: 1. Old lacunar infarct in the left basal ganglia. 2. Moderate nonspecific cerebral white matter disease and pontine disease, which likely represents chronic small vessel ischemic disease. Labs Labs: Laboratory Results - last 24 hr 10/09/24 05:04 WBC 6.8 RBC 3.41 L Hgb 11.5 L Hct 33.6 L MCV 98.5 MCH 33.7 MCHC 34.2 RDW 12.1 Plt Count 222 MPV 9.6 Immature Gran % (Auto) 0.7 H Neut % (Auto) 44.4 L Lymph % (Auto) 28.7 [place] % (Auto) 20.3 H Eos % (Auto) 4.6 H Baso % (Auto) 1.3 H Lymph # (Auto) 1.95 [place] # (Auto) 1.4 H Eos # (Auto) 0.3 Baso # (Auto) 0.1 Abs Immat Gran (auto) 0.05 H Absolute Neuts (auto) 3.0 Absolute Nucleated RBC 0.000 Nucleated RBC % 0.0 Sodium 138 Potassium 4.1 Chloride 104 Carbon Dioxide 22 Anion Gap 12 BUN 60 H D Creatinine 1.13 H Estim Creat Clear Calc 30 Estimated GFR 46 L Glucose 96 Calcium 9.4 Magnesium 2.1 Total Bilirubin 0.5 AST 41 H ALT 54 H Alkaline Phosphatase 53 NT-Pro-B Natriuret Pep 277 H Total Protein 7.0 Albumin 3.8 Quality VTE Prophylaxis VTE prophylaxis: mechanical ordered
[2024-10-09] MEDS: FENOFIBRATE 160 MG TABLET PO (09:30)
[2024-10-09] MEDS: DONEPEZIL HCL 10 MG TABLET PO (09:30)
[2024-10-09] MEDS: ASPIRIN 81 MG ENTERIC TABLET PO (09:30)
[2024-10-09] MEDS: FUROSEMIDE INJ 40 MG/4 ML VIAL 20 MG IV PUSH ×2 (09:30→16:44)
[2024-10-09] MEDS: METOPROLOL SUCCINATE EXT REL 25 MG TABCR PO (09:31)
[2024-10-09] MEDS: lisinopriL 10 MG TABLET PO (09:31)
[2024-10-09] MEDS: MEMANTINE 10 MG TABLET 20 MG PO (09:31)
[2024-10-09] MEDS: ISOSORBIDE MONONITRATE 30 MG TAB.ER.24H PO (09:31)
[2024-10-09] MEDS: HEPARIN SODIUM 5,000 UNITS/ML VIAL 5000 UNITS SUB-Q ×2 (09:31→22:08)
[2024-10-09] MEDS: NIFEdipine 30 MG TAB.ER.24 PO (09:32)
--- NOTE | 2024-10-09 10:54 | PCSTNOTE ---
Please refer to the Modified Barium Swallow Evaluation in the EMR.
[2024-10-09] MEDS: ATORVASTATIN 40 MG TABLET PO (22:08)
[2024-10-10] VITALS (12 sets, daily range): BP systolic 106–118; BP diastolic 48–83; PULSE 61–74; RESP 20; TEMP 36.5–36.8; O2SAT 95–98
[2024-10-10] MEDS: LEVOTHYROXINE SODIUM 88 MCG TABLET PO (05:35)
[2024-10-10 05:41] LABS: Basophils Absolute Auto 0.1 K/mm3 (0.0-0.1); Basophils Percent Auto 1.3 % (0.2-1.2); Eosinophils Absolute Auto 0.3 K/mm3 (0-0.3); Eosinophils Percent Auto 3.5 % (0-4.4); Hematocrit 32.8 % (37.0-47.0); Immature Granulocyte Percent A 1.2 % (0-0.5); Lymphocytes Absolute Auto 1.98 K/mm3 (0.9-3.2); Lymphocytes Percent Auto 23.1 % (18.3-44.2); Mean Corpuscular HGB Conc 33.5 g/dl (32-36); Mean Corpuscular Hemoglobin 33.4 pg (26-34); Mean Corpuscular Volume 99.7 fl (80-100); Mean Platelet Volume 9.8 fl (7.4-10.4); Monocytes Absolute Auto 1.2 K/mm3 (0.1-0.6); Monocytes Percent Auto 13.8 % (2.6-8.5); Neutrophils Absolute Auto 4.9 K/mm3 (1.3-6.7); Neutrophils Percent Auto 57.1 % (45.5-73.1); Platelet Count Result 259 k/mm3 (150-375); Red Blood Count 3.29 M/mm3 (4.2-5.4); White Blood Count 8.6 K/mm3 (4.5-10.0)
[2024-10-10 05:56] LABS: NT Pro B Type Natriuretic Pept 215 pg/mL (19.9-100)
[2024-10-10 05:57] LABS: Alanine Aminotransferase 41 U/L (6-35); Albumin Level 3.8 g/dL (3.5-5.1); Alkaline Phosphatase 54 U/L (38-126); Anion Gap 12 mmol/L (4-12); Aspartate Amino Transferase 29 U/L (14-36); Bilirubin,Total 0.5 mg/dL (0.2-1.3); Blood Urea Nitrogen 64 mg/dL (7-17); Calcium 9.3 mg/dL (8.4-10.2); Carbon Dioxide 22 mmol/L (22-30); Chloride 104 mmol/L (98-107); Estimated CRCL calculation 32 ml/min; Estimated Glomerular Filt Rate 48; Glucose 95 mg/dL (65-110); Magnesium 2.1 mg/dL (1.6-2.3); Potassium 4.2 mmol/L (3.4-5.0); Sodium 138 mmol/L (137-145)
--- NOTE | 2024-10-10 08:59 | PM.DS ---
DS: Admitting Diagnosis Discharge Date 10/10/24 Admitting Diagnosis Headache Shortness of breath Fluid overload Obesity Dyslipidemia Dementia Hypertension DS: Summary Hospital Course Reason for hospitalization: Headache Shortness of breath Fluid overload Obesity Dyslipidemia Dementia Hypertension Hospital Course: This is an 84-year-old female with a significant past medical history of obesity, dyslipidemia, dementia, hypothyroidism, hypertension, osteoporosis who presented to the hospital with shortness of breath and fatigue. Workup in the hospital included CT which showed small old infarct in the left basal ganglia, no acute intracranial process, age-related changes. Brain MRI showed old lacunar infarct at the left basal ganglia, moderate nonspecific cerebral white matter disease and old time disease representing chronic small-vessel ischemic disease. Patient had a modified barium swallow which was considered normal per speech therapy report. Chest x-ray showed mild increased interstitial pattern in the lower lungs representing mild pulmonary edema or chronic interstitial lung disease. Initial labs showed a white blood cell count of 10.5, hemoglobin 11.4, sodium 136, bicarb 21, creatinine 1.40, EGFR 36, AST 48, ALT 45, troponin negative x2, proBNP 1220. Respiratory panel was negative for influenza a and B, RSV, COVID. EKG was obtained which showed sinus rhythm with a rate of 63, QTC 416. Echocardiogram was obtained and showed normal left ventricular systolic function with an estimated EF of 50-55%, grade 1 diastolic dysfunction. Patient was given IV Lasix for diuresis and she was transition to oral Lasix today. Her vital signs are stable, she is afebrile, she is currently on room air. She is stable for discharge at this time. She will need to follow up with her primary care doctor in 1 week. She was prescribed Lasix 20 mg daily. Final diagnosis: CHF exacerbation Status at Discharge Cognitive/behavioral status at discharge: Alert and oriented x3 Functional status at discharge: uses cane/walker Overall status at discharge: patient is progressing back to baseline Time Spent with Patient Time attestation: Total time spent providing and/or coordinating discharge services: Time spent: Greater than 30 minutes Exam Narrative: General: In no acute distress, well nourished, talkative, pleasant Head: atraumatic, no encephalopathy Eyes: PERRLA, sclera clear ENT: moist mucous membranes, nasal passages clear Neck: supple, no JVD, no adenopathy, trachea midline Cardiac: Normal S1 and S2. No murmur, gallops or friction rubs, peripheral pulses intact. Respiratory: Lungs clear to auscultation, no adventitious lung sounds, currently on room air, appears to be short of breath at rest Gastrointestinal: soft, non-distended, non-tender, normoactive bowel sounds. : voiding without difficulty. Extremities: moves all extremities well, no edema Skin: clean, dry, intact. No wounds or lesions. Neuro: Alert and oriented x4, cranial nerves intact, no neuro deficits. Psych: normal mood, normal affect, interactive DS: Data Data Completed and Pending Completed studies during hospitalization: Chest x-ray Modified barium swallow Brain MRI Chest x-ray Head CT Pending studies at discharge: None Labs on day of discharge: Labs from last 24 hours 10/10/24 05:17 WBC 8.6 RBC 3.29 L Hgb 11.0 L Hct 32.8 L MCV 99.7 MCH 33.4 MCHC 33.5 RDW 12.0 Plt Count 259 MPV 9.8 Immature Gran % (Auto) 1.2 H Neut % (Auto) 57.1 Lymph % (Auto) 23.1 [place] % (Auto) 13.8 H Eos % (Auto) 3.5 Baso % (Auto) 1.3 H Lymph # (Auto) 1.98 [place] # (Auto) 1.2 H Eos # (Auto) 0.3 Baso # (Auto) 0.1 Abs Immat Gran (auto) 0.10 H Absolute Neuts (auto) 4.9 Absolute Nucleated RBC 0.000 Nucleated RBC % 0.0 Sodium 138 Potassium 4.2 Chloride 104 Carbon Dioxide 22 Anion Gap 12 BUN 64 H Creatinine 1.08 H Estim Creat Clear Calc 32 Estimated GFR 48 L Glucose 95 Calcium 9.3 Magnesium 2.1 Total Bilirubin 0.5 AST 29 ALT 41 H Alkaline Phosphatase 54 NT-Pro-B Natriuret Pep 215 H Total Protein 7.0 Albumin 3.8 Procedures/Treatments: None Discharge Plan Discharge Attending physician on discharge: Pete Dodge Discharging Clinician: Antoinette Hall Anticipated Discharge Date/Time: 10/10/24 08:50 Patient Disposition: Home, Self-Care Activity: as tolerated Diet: as tolerated, heart healthy and low sodium Discharge Instructions: Your echocardiogram shown normal left ventricular systolic function with an estimated ejection fraction of 50-55%, grade I diastolic dysfunction, severely calcified mitral valve. You were given IV Lasix for fluid overload We are placing you on oral Lasix 20 mg daily. Continue taking this medication and follow up with your primary care doctor in 1 week. You will need to obtain another BMP at the lab of your choice in 1 week to recheck your creatinine level. Follow a heart healthy diet, try and keep your sodium level less than 2 gm daily. Take this paper with you to your primary care doctor that way they can see the result of your echocardiogram. If they prefer, they can refer you to a culinary chef to follow up with you outpatient. Patient Instructions: Furosemide (By mouth), Heart Failure (DC), Heart Healthy Diet (DC), Low-Sodium Diet (DC) Patient Language: Persian Stand Alone Forms: General Discharge Information Follow-up/Referrals: PHYSICIAN NOT ON STAFF,NONSTAFF [Primary Care Provider] - 1 Week Discharge Medications: New furosemide 20 mg Tablet 20 mg PO DAILY Qty: 30 0RF Continued alendronate 70 mg tablet 70 mg PO WEEKLY Patient Comments: takes on Wednesdays fenofibrate 160 mg tablet 160 mg PO DAILY donepezil 10 mg tablet 10 mg PO DAILY atorvastatin 40 mg tablet 40 mg PO QHS metoprolol succinate 25 mg tablet extended release 24 hr 25 mg PO DAILY nifedipine 30 mg tablet extended release 24hr 30 mg PO DAILY isosorbide mononitrate 30 mg tablet extended release 24 hr 30 mg PO DAILY levothyroxine 88 mcg tablet 88 mcg PO DAILY@0630 om [facility] 1 cap PO DAILY memantine 10 mg tablet 20 mg PO DAILY coQ10 (ubiquinol) [Qunol Yonathan CoQ10] 100 mg capsule 100 mg PO DAILY aspirin [Adult Low Dose Aspirin] 81 mg tablet,delayed release (DR/EC) 81 mg PO DAILY lisinopril 10 mg tablet 10 mg PO DAILY Other Ambulatory Orders: Basic Metabolic Panel (Routine) Timeframe: 1 Week Location: Determined by Patient Ordered By: Antoinette Hall Date of admission: 10/08/24 07:45 Primary Care Provider: PHYSICIAN NOT ON STAFF,NONSTAFF Admitting Provider: Elgin Sheridan Attending physician on admission: Antoinette Hall Condition: Improved Quality VTE Prophylaxis VTE prophylaxis: pharmacologic ordered Hospitalist MIPS Heart Failure (Exclusion) Patient has history of Heart Transplant or Left Ventricular Assistive Device?: No IF YES, STOP HERE Heart Failure (Qualifier) Patient has current or prior documentation of LVEF less than or equal to 40%, or mod/servere depressed LVSF?: No IF NO, STOP HERE
[2024-10-10] MEDS: lisinopriL 10 MG TABLET PO (10:11)
[2024-10-10] MEDS: ASPIRIN 81 MG ENTERIC TABLET PO (10:11)
[2024-10-10] MEDS: NIFEdipine 30 MG TAB.ER.24 PO (10:12)
[2024-10-10] MEDS: METOPROLOL SUCCINATE EXT REL 25 MG TABCR PO (10:12)
[2024-10-10] MEDS: ISOSORBIDE MONONITRATE 30 MG TAB.ER.24H PO (10:12)
[2024-10-10] MEDS: FUROSEMIDE 20 MG TABLET PO (10:13)
[2024-10-10] MEDS: FENOFIBRATE 160 MG TABLET PO (10:13)
[2024-10-10] MEDS: HEPARIN SODIUM 5,000 UNITS/ML VIAL 5000 UNITS SUB-Q (10:14)
[2024-10-10] MEDS: DONEPEZIL HCL 10 MG TABLET PO (10:14)
[2024-10-10] MEDS: ACETAMINOPHEN 325 MG TABLET 650 MG PO (10:21)
[2024-10-10] MEDS: MEMANTINE 10 MG TABLET 20 MG PO (10:22)
--- NOTE | 2024-10-10 16:24 | PCRCNOTE ---
Home oxygen eval completed on room air. Patient never required oxygen before, during, or after walk. RN notified.
== END 2024-10-10 16:35 | disposition home or self-care (01) | DRG 293 ==
LOC: ANHED 18:36 → ANH3MEDSUR 20:40 → ANH2MED 21:48
PROVIDERS: Internal Medicine; Nurse Practitioner Family; Physician Assistant; Admitting Provider Internal Medicine; Emergency Provider Emergency Medicine; Visit Provider Nurse Practitioner Acute Care
DX: I11.0 Hypertensive heart disease with heart failure (principal); I50.9 Heart failure, unspecified; E66.9 Obesity, unspecified; E78.5 Hyperlipidemia, unspecified; F03.90 Unspecified dementia, unspecified severity, without behavioral disturbance, psychotic disturbance, mood disturbance, and anxiety; E03.9 Hypothyroidism, unspecified; M81.0 Age-related osteoporosis without current pathological fracture; R51.9 Headache, unspecified; Z86.73 Personal history of transient ischemic attack (TIA), and cerebral infarction without residual deficits; Z20.822 Contact with and (suspected) exposure to COVID-19; Z87.891 Personal history of nicotine dependence; Z66 Do not resuscitate; Z68.30 Body mass index [BMI] 30.0-30.9, adult; Z79.82 Long term (current) use of aspirin
CPT/HCPCS: 36415; 70450; 70551; 71045; 71046; 80053; 83735; 83880; 84484; 85025; 85610; 85730; 87637; 92610; 92611; 93005; 94618; 96374; 96375; 96376; 97161; 97165; 99285; A9270; C8929; G0378; J1644; J1940; Q9957

== ENCOUNTER 2025-07-06 10:14 | Inpatient (IN) | payer MEDICARE, SELFPAY ==
[2025-07-06] VITALS (32 sets, daily range): BP systolic 81–125; BP diastolic 42–70; PULSE 60–89; RESP 16–35; TEMP 36.6–36.8; O2SAT 93–99; BMI 30.1
--- NOTE | ~2025-07-06 | XR_ITS ---
EXAMINATION: XR chest 1V portable COMPARISON: No comparisons available. HISTORY: SOB FINDINGS: Moderate pulmonary venous congestion. No pneumothorax. Moderate cardiomegaly. Mediastinal and hilar contours are within normal limits. The bones are normal. Miscellaneous: None Impression: CHF Reviewed, dictated and finalized at location [facility] Impression: CHF
--- NOTE | 2025-07-06 10:31 | ECG_ITS ---
Test Date: 2025-07-06 10:34:22 Measurements Intervals [place] Rate: 75 P: 10 SD: 165 QRS: -12 QRSD: 116 T: -13 QT: 359 QTc: 403 Interpretive Statements SINUS RHYTHM WITH OCCASIONAL SUPRAVENTRICULAR PREMATURE COMPLEXES MODERATE VOLTAGE CRITERIA FOR LVH, CONSIDER NORMAL VARIANT [MEETS CRITERIA IN ONE OF: R(aVL), S(V1), R(V5), R(V5/V6)+S(V1)] INFERIOR MYOCARDIAL INFARCTION , OF INDETERMINATE AGE [40+ ms Q WAVE AND/OR ST/T ABNORMALITY IN II/aVF] ABNORMAL ECG Compared to ECG 10/07/2024 15:32:45 No significant changes Electronically Signed On 07-06-2025 17:27:59 HEMODIALYSIS TECHNICIAN by Lionel Gilmore M.D.
[2025-07-06] MEDS: SODIUM CHLORIDE 0.9% IV 500 ML 999 ML IV CONT (11:01)
--- NOTE | 2025-07-06 11:02 | ED.GENADULT ---
HPI - General Adult General Chief complaint: Shortness of Breath/Dyspnea Stated complaint: SOB, cough since yesterday. HX CHF Time Seen by Provider: 07/06/25 10:30 History of Present Illness HPI narrative: 84-year-old female history of CHF present to the emergency department for evaluation for exertional shortness of breath over the last few days. Patient does have history of Alzheimer's dementia and does live at home with family. Family states that she has had worsening exertional shortness of breath over the last 2 days. Patient did have an episode where she was coughing a lot while eating at patient did have extended shortness of breath after that episode. Upon arrival emergency department patient is at her normal mental baseline other than being more tired-per family. Page does have past medical history of hypertension, high cholesterol and dementia. Patient did have her blood pressure medications this morning. Related Data Home Medications ?Medication ?Instructions ?Recorded ?Confirmed ?Last Taken ?Type alendronate 70 mg tablet 70 mg PO WEEKLY 10/07/24 07/06/25 06/30/25 History aspirin 81 mg tablet,delayed 81 mg PO DAILY 10/07/24 07/06/25 07/06/25 History release (Adult Low Dose Aspirin) atorvastatin 40 mg tablet 40 mg PO QHS 10/07/24 07/06/25 07/05/25 History donepezil 10 mg tablet 10 mg PO DAILY 10/07/24 07/06/25 07/06/25 History fenofibrate 160 mg tablet 160 mg PO DAILY 10/07/24 07/06/25 07/06/25 History isosorbide mononitrate 30 mg 30 mg PO DAILY 10/07/24 07/06/25 07/06/25 History tablet,extended release 24 hr levothyroxine 88 mcg tablet 88 mcg PO DAILY@0630 10/07/24 07/06/25 07/06/25 History lisinopril 10 mg tablet 10 mg PO DAILY 10/07/24 07/06/25 07/06/25 History memantine 10 mg tablet 20 mg PO DAILY 10/07/24 07/06/25 07/06/25 History metoprolol succinate 25 mg 25 mg PO DAILY 10/07/24 07/06/25 07/06/25 History tablet,extended release 24 hr nifedipine 30 mg tablet,extended 30 mg PO DAILY 10/07/24 07/06/2507/06/25 History release 24 hr om ocuview 1 cap PO DAILY 10/07/24 07/06/25 07/06/25 History acetaminophen 650 mg 1,300 mg PO Q8H PRN pain 07/06/25 07/06/25 07/06/25 History tablet,extended release (8 Hour Pain Reliever) Allergies Allergy/AdvReac Type Severity Reaction Status Date / Time No Known Allergies Allergy Verified 07/06/25 13:51 Review of Systems Review of Systems: All systems reviewed & are unremarkable except as noted in HPI and below [facility] Past Medical History Medical History (Updated 07/06/25 @ 17:52 by Hunter Sena MD) Hypertension Dementia Dyslipidemia Family History Family History (Updated 10/07/24 @ 22:43 by Kathy Luis RN) Father Alzheimer dementia UTI (urinary tract infection) Mother UTI (urinary tract infection) Social History Social History Years smoked: 15 Smoking status: Former smoker Tobacco type: cigarettes Alcohol intake: never Substance use: never Substance use type: does not use Do You Feel Safe in your Home?: Yes Lack of Transportation: No Lack of Food: Never True Current Housing: I Have Housing Concerned About Future Housing: No Difficulty Paying Gas/Electric Bills: No Difficulty Paying for Meds: No Currently Unemployed: No Education: High School Diploma/GED Difficulty w/ Childcare or Family Care: No Spiritual care concerns: No Exam Narrative: APPEARANCE: Fatigued and ill appearing HEAD: normocephalic, atraumatic. EYES: PERRLA/EOMI, conjunctivae clear. NOSE: Normal no drainage EARS:TMS clear with good light reflex. THROAT: Pharynx clear, no exudate. NECK: Supple. No adenopathy, no masses. RESPIRATORY: Congested lung sounds bilaterally CARDIOVASCULAR: Regular rate and rhythm without murmurs rubs or gallops. ABDOMINAL: Soft, nontender, nondistended, normal bowel sounds MUSCULOSKELETAL: Moves all extremities. Strength/ROM intact, No edema, No calf tenderness. NEURO: Alert. Cranial nerves II through XII intact. Good gait. Good coordination SKIN: Warm, dry. Normal Color Course Vital Signs Vital signs: Vital Signs Pulse Rate 76 07/06/25 10:30 Respiratory Rate 30 H 07/06/25 10:30 Blood Pressure 98/60 L 07/06/25 10:30 Pulse Oximetry 96 07/06/25 10:30 Oxygen Delivery Room Air 07/06/25 10:30 Temperature 98.1 F 07/06/25 16:00 Pulse Rate 67 07/06/25 16:00 Respiratory Rate 24 H 07/06/25 16:00 Blood Pressure 121/58 L 07/06/25 16:00 Pulse Oximetry 98 07/06/25 16:00 Oxygen Delivery Room Air 07/06/25 10:30 Medical Decision Making MDM Narrative Medical decision making narrative: 84-year-old female presented to the emergency department for evaluation for suspected CHF. Patient has had exertional shortness of breath over the last few days and patient does have history of CHF. Patient has had decreased p.o. intake over the last few days as well and patient did take her blood pressure medications this morning. Patient is mildly hypotensive upon arrival to the ED. Patient was treated with a small bolus of IV fluids to help with her blood pressure. Patient is currently afebrile but does have a leukocytosis 12.3 hemoglobin 11.5. INR of 1.2. Patient does have an elevated proBNP of 1980 and a mildly elevated troponin of 0.045. No evidence acute STEMI on EKG this troponin is thought to be troponin leak secondary to the CHF exacerbation. Patient was negative for influenza RSV and for COVID. Chest x-ray did confirm CHF. Case was discussed with the hospitalist patient will be admitted for a suspected CHF exacerbation. Holding on aggressive diuresis until patient's morning blood pressure medications were often patient's blood pressure improved. Patient will be admitted to the IMU. Patient and family were updated the results of the workup will plan for admission. All questions concerns were addressed. Differential Diagnosis Differential Diagnosis: CHF, pneumonia, COVID, RSV, influenza Vital Signs Vital Signs: Vital Signs Pulse Rate 76 07/06/25 10:30 Respiratory Rate 30 H 07/06/25 10:30 Blood Pressure 98/60 L 07/06/25 10:30 Pulse Oximetry 96 07/06/25 10:30 Oxygen Delivery Room Air 07/06/25 10:30 Temperature 98.1 F 07/06/25 16:00 Pulse Rate 67 07/06/25 16:00 Respiratory Rate 24 H 07/06/25 16:00 Blood Pressure 121/58 L 07/06/25 16:00 Pulse Oximetry 98 07/06/25 16:00 Oxygen Delivery Room Air 07/06/25 10:30 Lab Data Lab results reviewed: Yes I reviewed the patient's lab results. 07/06/25 11:03 07/06/25 11:03 Labs: Lab Results 07/06/25 Range/Units 11:03 WBC 12.3 H (4.5-10.0) K/mm3 RBC 3.39 L (4.2-5.4) M/mm3 Hgb 11.5 L (12.0-15.0) g/dL Hct 34.5 L (37.0-47.0) % MCV 101.8 H (80-100) fl MCH 33.9 (26-34) pg MCHC 33.3 (32-36) g/dl RDW 12.8 (11.5-14.5) % Plt Count 228 (150-375) k/mm3 MPV 10.2 (7.4-10.4) fl Immature Gran % (Auto) 0.4 (0-0.5) % Neut % (Auto) 73.2 H (45.5-73.1) % Lymph % (Auto) 10.4 L (18.3-44.2) % [place] % (Auto) 14.3 H (2.6-8.5) % Eos % (Auto) 0.7 (0-4.4) % Baso % (Auto) 1.0 (0.2-1.2) % Lymph # (Auto) 1.28 (0.9-3.2) K/mm3 [place] # (Auto) 1.8 H (0.1-0.6) K/mm3 Eos # (Auto) 0.1 (0-0.3) K/mm3 Baso # (Auto) 0.1 (0.0-0.1) K/mm3 Abs Immat Gran (auto) 0.05 H (0.00-0.031) K/mm3 Absolute Neuts (auto) 9.0 H (1.3-6.7) K/mm3 Absolute Nucleated RBC 0.000 (0.0-0.012) K/mm3 Nucleated RBC % 0.0 (0.0-0.2) % PT 15.1 H (11.1-14.7) Seconds INR 1.2 APTT 30.4 (22.3-36.8) Seconds Sodium 138 (137-145) mmol/L Potassium 4.3 (3.4-5.0) mmol/L Chloride 108 H (98-107) mmol/L Carbon Dioxide 17 L (22-30) mmol/L Anion Gap 13 H (4-12) mmol/L BUN 33 H D (7-17) mg/dL Creatinine 1.31 H (0.7-1.0) mg/dL Estim Creat Clear Calc 26 ml/min Estimated GFR 38 L (59 - ) Glucose 133 H (65-110) mg/dL Calcium 9.8 (8.4-10.2) mg/dL Total Bilirubin 0.6 (0.2-1.3) mg/dL AST 29 (14-36) U/L ALT 22 (6-35) U/L Alkaline Phosphatase 48 (38-126) U/L Troponin I 0.045 H* (0.000-0.034) ng/mL NT-Pro-B Natriuret Pep 1980 H (19.9-100) pg/mL Total Protein 8.1 (6.3-8.2) g/dL Albumin 4.3 (3.5-5.1) g/dL Influenza A (RT-PCR) Negative (Negative) Influenza B (RT-PCR) Negative (Negative) RSV (RT-PCR) Negative (Negative) SARS-CoV-2 RNA (RT-PCR) Negative (Negative) Imaging Data Radiologist's impression: Impressions Chest X-Ray 07/06/25 11:03 Impression: CHF Discharge Plan Discharge Clinical Impression: Exertional dyspnea, CHF exacerbation, Generalized weakness Patient Disposition: Still a Patient Condition: Serious
[2025-07-06 11:19] LABS: Hematocrit 34.5 % (37.0-47.0); Hemoglobin 11.5 g/dL (12.0-15.0); Immature Granulocyte Percent A 0.4 % (0-0.5); Lymphocytes Absolute Auto 1.28 K/mm3 (0.9-3.2); Mean Corpuscular HGB Conc 33.3 g/dl (32-36); Mean Corpuscular Hemoglobin 33.9 pg (26-34); Mean Corpuscular Volume 101.8 fl (80-100); Nucleated Red Blood Cells Absolute Auto 0.000 K/mm3 (0.0-0.012); Nucleated Red Blood Cells Perc 0.0 % (0.0-0.2); Platelet Count Result 228 k/mm3 (150-375); Red Blood Count 3.39 M/mm3 (4.2-5.4); White Blood Count 12.3 K/mm3 (4.5-10.0)
--- OUTSIDE RECORDS SUMMARY | 2025-07-06 11:26 | XMS_ITS | Clinical Summary ---
Author Organization [facility] [address] Address [address] [place] [id number] Care Team Providers Care Field Tech Name Role Phone Arley Menard MD Primary [...] 1 tablet by mouth daily Active vitamins A,C,Z-agju-gimmp r (PreserVision AREDS) 2,148 mcg-113 mg-45 mg-17.4mg [...] Diagnosed Date Coronary artery disease invo lving [place] coronary artery of [place] heart without angina pectoris 10/19/2023 Hypercholesteremia 10/19/2023 [...] on file Legal Sex Female 12:06 PM DIRECTOR OF EMERGENCY NURSING Gender Identity Not on file Sexual Orientation Not on file Last Filed Vital Signs Vital Sign Reading Time Taken Comments Blood Pressure 120/68 10/07/2024 10:59 AM DIRECTOR OF EMERGENCY NURSING Pulse 81 10/07/2024 10:59 AM DIRECTOR OF EMERGENCY NURSING Temperature 36.7 C (98.1 F) 10/07/2024 10:59 AM DIRECTOR OF EMERGENCY NURSING Respiratory Rate 28 10/07/2024 10:59 AM DIRECTOR OF EMERGENCY NURSING Oxygen Saturation 95% 10/07/2024 10:59 AM DIRECTOR OF EMERGENCY NURSING Inhaled Oxygen Concentration - - Weight 75.5 kg (166 lb 6.4 oz) 10/07/2024 10:59 AM DIRECTOR OF EMERGENCY NURSING Height 157.5 cm (5' 2.01) 10/07/2024 10:[address] Body Mass Index 30.43 10/07/2024 10:59 AM DIRECTOR OF EMERGENCY NURSING Plan of Treatment Health Maintenance Due Date Last Done Comments Depression Screening 1938 Fall Risk Assessment 1938 Osteoporosis Screening-Bone Density Scan 1938 DTaP/Tdap/Td Vaccine (1 - Tdap) 1949 Hepatitis B Screening 1956 Pneumococcal vaccine 65+ (1 of 1 - PCV) 1988 Zoster Vaccine (1 of 2) 1988 Well Visit 65+ 2003 Influenza Vaccine (#1) 2025 2, 05/01/2021, 05/17/2020, Additional history exists Insurance [facility] Care Teams Field Tech Relationship Specialty Start Date End Date Arley Menard MD PCP - General Family Practice 10/19/23
[2025-07-06 11:30] LABS: Alanine Aminotransferase 22 U/L (6-35); Albumin Level 4.3 g/dL (3.5-5.1); Alkaline Phosphatase 48 U/L (38-126); Anion Gap 13 mmol/L (4-12); Aspartate Amino Transferase 29 U/L (14-36); Bilirubin,Total 0.6 mg/dL (0.2-1.3); Blood Urea Nitrogen 33 mg/dL (7-17); Calcium 9.8 mg/dL (8.4-10.2); Carbon Dioxide 17 mmol/L (22-30); Chloride 108 mmol/L (98-107); Estimated CRCL calculation 26 ml/min; Estimated Glomerular Filt Rate 38; Glucose 133 mg/dL (65-110); Potassium 4.3 mmol/L (3.4-5.0); Sodium 138 mmol/L (137-145); Total Protein 8.1 g/dL (6.3-8.2)
[2025-07-06 11:32] LABS: INR 1.2; Prothrombin Time 15.1 Seconds (11.1-14.7)
[2025-07-06 11:33] LABS: Partial Thromboplastin Time 30.4 Seconds (22.3-36.8)
[2025-07-06 11:41] LABS: NT Pro B Type Natriuretic Pept 1980 pg/mL (19.9-100); Troponin I 0.045 ng/mL (0.000-0.034)
[2025-07-06 11:59] LABS: Influenza A QL RT-PCR Negative (Negative); Influenza B QL RT-PCR Negative (Negative); RSV RNA, RT-PCR Negative (Negative); SARS-CoV-2 RNA PCR Negative (Negative)
--- OUTSIDE RECORDS SUMMARY | 2025-07-06 12:01 | XMS_ITS | Clinical Summary ---
Author Organization [facility] Address [facility] [place] [address] Care Team Providers Care Treating Plant Supervisor Name Role Phone Jeffery Salinas MD Unavailable [phone] Arley Menard MD Primary Care Provider [phone] Allergies Active Allergy Reactions Criticality Noted Date Comments Atorvastatin Myalgias Low 05/01/2016 Ezetimibe-Simvastatin Myalgias Low 05/01/2016 Simvastatin Myalgias Low 05/01/2016 Medications aspirin EC 81 MG tablet Take 1 tablet (81 mg total) by mouth daily. 5 Active Coenzyme Q10 (CO Q-10) 100 MG Cap Take 1 capsule (100 mg total) by mouth daily. 2 Active [place]-3-6-9 Cap Take 2 tablets by mouth nightly. [...] mg total) by mouth daily. 4 Active furosemide (LASIX) 20 MG tablet Take 1 tablet (20 mg total) by mouth every morning. 5 Active Active Problems Problem Noted Date Diagnosed Date Encounter to discuss colonoscopy results 021 Occult blood in stools 02/20/2021 Colitis 02/06/2021 Acute diverticulitis 02/03/2021 Gastroesophageal reflux disease without esophagi tis 03/06/2019 Radiculopathy 09/12/2017 Spinal stenosis 09/12/2017 Anemia 01/15/2017 Arthritis 01/15/2017 Precordial pain 11/14/2016 Dizziness 11/14/2016 Exertional angina 11/14/2016 S/P coronary artery stent placement 05/01/2016 PVD (peripheral vascular disease) 05/01/2016 Myocardial infarction 06/17/2013 Overview (05/01/2016): acute inferior wall myocardial infarction Arrhythmia 12/17/2004 Overview (05/02/2016): 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 for which she underwent several cardio versions Hypertension Hyperlipidemia Coronary artery disease invo lving [place] coronary artery of [place] heart without angina pectoris Hypothyroidism History of nicotine dependence Resolved Problems Problem Noted Date Diagnosed Date Resolved Date 23-polyvalent pneumococcal p olysaccharide vaccine contraindicated as received shingles vaccine within last 4 weeks 04/12/2009 04/28/2019 Overview (05/01/2016): shingles vaccine Family History Medical History Relation Comments triglycerides [...] Smoking Tobacco: Former Cigarettes Smokeless Tobacco: Never Tobacco Cessation:Counseling Given: Not Answered Alcohol Use Standard Drinks/Week Comments No 0 [...] Sign Reading Time Taken Comments Blood Pressure 120/56 01/25/2025 10:33 AM CDT Pulse 61 01/25/2025 10:33 AM CDT Temperature 37 C (98.6 F) 06/26/2021 11:29 AM WEIGHT REDUCING TECHNICIAN Respiratory Rate 16 06/26/2021 12:08 PM WEIGHT REDUCING TECHNICIAN Oxygen Saturation 94% 01/25/2025 10:33 AM CDT Inhaled Oxygen Concentration - - Weight 73 kg (161 lb) 01/25/2025 10:33 AM CDT Height 157.5 cm (5' 2) 01/25/2025 10:33 AM CDT Body Mass Index 29.45 01/25/2025 10:33 AM CDT Plan of Treatment Upcoming Encounters Date Type Department Care Team (Late st Contact Info) Description 01/27/2026 10:00 AM CDT Appointment [facility] [address] [place] [address] Jeffery Salinas MD [address] [place] [address] 01/27/2026 11:30 AM CDT Office Visit [facility] [address] [place] [address] Jeffery Salinas MD [address] [place] [address] Health Maintenance Due Date Last Done Comments DTaP, Tdap and Td Vaccines (1 - Tdap) 1957 Pneumococcal Vaccine: 50+ Years (1 of 2 - PCV) 1957 Zoster Vaccines (1 of 2) 1988 Annual Medicare Wellness Visit 2003 RSV Immunization or 60+ Years (1 - 1-dose 75+ series) 2013 ASCVD LDL 02/06/2025 02/07/2024, 04/12, 10/12/2016, Additional history exists COVID-19 Vaccine ( season) 2025 05/08/2022, 10/06/2020, 09/08/2020 Influenza Adult (#1) 2025 05/29/2022, 05/01/2021, 05/17/2020, Additional history exists Hepatitis A Vaccines Aged Out No long er eligible based on patient's age to complete this topic Meningococcal B Vaccine Aged Out No l [...] upon discharge from hospital General No Ivelisse Hussein, human services professional Procedure Name Priority Date/Time Associated Diagnosis Comments LIPID PANEL Routine 02/07/2024 from Last 3 Months or Most Recently Relevant to Health Maintenance Results * LIPID PANEL (02/07/2024) CHOLESTEROL 132 TRIGLYCERIDES 250 HDL 38 DIRECT LDL 61 us Default History Genericprovider LABORATORY Final Result from Last 3 Months or Most Recently Relevant to Health Maintenance Insurance [employer] [facility] [employer] LIFE [employer] MEDICARE Advance Directives * Full Code (Latest Code Status on File) Date Activated Date Inactivated Comments 02/03/2021 9:21 PM 02/06/2021 4:41 PM Care Teams Treating Plant Supervisor Relationship Specialty Start Date End Date Arley Menard MD [address] [place] [address] PCP - General FAMILY PRACTICE 01/21/25 Jeffery Salinas MD [address] [place] [id number] Macy Templer Head CARDIOVASCULAR DISEASE 10/22/16
--- OUTSIDE RECORDS SUMMARY | 2025-07-06 12:01 | XMS_ITS | Encounter Summary ---
Author Organization [facility] Address [facility] [place] [address] Care Team Providers Care Sheet Pile Hammer Operator Name Role Phone Jeffery Salinas MD Unavailable [phone] Derick Khalil MD Primary Care Provider Unavailable Arley Menard MD Primary Care Provider [phone] Satish Contreras MD Primary Care Provider [phone] Arley Menard MD Primary Care Provider [phone] Arley Menard MD Primary Care Provider [phone] Encounter Details Date Type Department Care Team (Late st Contact Info) Description 01/11/2016 Abstract [facility] [address] [place] [address] Jeffery Salinas MD [address] [place] [address] Social History Tobacco Use Types [...] Info) Description 01/27/2026 10:00 AM CDT Appointment [facility] [address] [place] [address] Jeffery Salinas MD [address] [place] [address] 01/27/2026 11:30 AM CDT Office Visit [facility] [address] [place] [address] Jeffery Salinas MD [address] [place] [address] documented as of this encounter Visit Diagnoses Not on filedocumented in this encounter Care Teams Sheet Pile Hammer Operator Relationship Specialty Start Date End Date Derick Khalil MD [address] [place] [address] PCP - General FAMILY PRACTICE 12/11/16 03/25/18 Arley Menard MD [address] [place] [address] PCP - General FAMILY PRACTICE 03/26/18 06/14/20 Satish Contreras MD [address] [place] [address] PCP - General FAMILY PRACTICE 06/15/20 02/03/21 Arley Menard MD [address] [place] [address] PCP - General FAMILY PRACTICE 02/04/21 01/20/25 Arley Menard MD [address] [place] [address] PCP - General FAMILY PRACTICE 01/21/25 Jeffery Salinas MD [address] [place] [address] [facility] It Software Developer CARDIOVASCULAR DISEASE 10/22/16 documented as of this encounter
--- OUTSIDE RECORDS SUMMARY | 2025-07-06 12:01 | XMS_ITS | Encounter Summary ---
Author Organization [facility] Address [facility] [place] [address] Care Team Providers Care Inside Sales Manager Name Role Phone Jeffery Salinas MD Unavailable [phone] Derick Khalil MD Primary Care Provider Unavailable Arley Menard MD Primary Care Provider [phone] Satish Contreras MD Primary Care Provider [phone] Arley Menard MD Primary Care Provider [phone] Arley Menard MD Primary Care Provider [phone] Encounter Details Date Type Department Care Team (Late st Contact Info) Description 12/13/2016 Abstract [facility] [address] [place] [address] Jeffery Salinas MD [address] [place] [address] Social History Tobacco Use Types [...] Info) Description 01/27/2026 10:00 AM CDT Appointment [facility] [address] [place] [address] Jeffery Salinas MD [address] [place] [address] 01/27/2026 11:30 AM CDT Office Visit [facility] [address] [place] [address] Jeffery Salinas MD [address] [place] [address] documented as of this encounter [...] on filedocumented in this encounter Care Teams Inside Sales Manager Relationship Specialty Start Date End Date Derick Khalil MD [address] [place] [address] PCP - General FAMILY PRACTICE 12/11/16 03/25/18 Arley Menard MD [address] [place] [facility] [place] [address] PCP - General FAMILY PRACTICE 03/26/18 06/14/20 Satish Contreras MD [address] [place] [address] PCP - General FAMILY PRACTICE 06/15/20 02/03/21 Arley Menard MD [address] [place] [address] PCP - General FAMILY PRACTICE 02/04/21 01/20/25 Arley Menard MD [address] [place] [address] PCP - General FAMILY PRACTICE 01/21/25 Jeffery Salinas MD [address] [place] [address] [facility] Career Placement Specialist CARDIOVASCULAR DISEASE 10/22/16 documented as of this encounter
--- NOTE | 2025-07-06 13:05 | WPCEDHO ---
ED Hand Off Checklist All vitals saved: yes IV Site documented: yes All med administrations documented: yes Triage Note Triage Note Patient started having SOB and 07/06/25 10:30 cough since saturday07/04/25, per family patient might have aspirated while eating dinner and has started having signs of increased WOB and dyspnea. Allergies No Known Allergies Allergy (Verified 10/08/24 11:16) Family History (Last Updated 10/07/24 @ 22:43 by Kathy Luis RN) Father Alzheimer dementia UTI (urinary tract infection) Mother UTI (urinary tract infection) Administered/Completed Medications Discontinued Medications Sodium Chloride (Normal Saline Iv) 500 mls @ 999 mls/hr IV CONT .Q31M STA Stop: 07/06/25 11:19 Last Infusion: 07/06/25 11:52 Dose: Infused Documented By: JORGE LUIS Admin: 07/06/25 11:01 Dose: 999 mls/hr Documented By: JORGE LUIS Interventions/Assessments IV / Saline Lock, Insert Start: 07/06/25 10:15 Freq: Status: Active Protocol: Document 07/06/25 10:30 JJJ (Rec: 07/06/25 10:37 JJJ [id number]) IV Assessment Peripheral Access Left Wrist IV Catheter Access Initiated IV Insertion Date 07/06/25 IV Insertion Time 10:36 Catheter Gauge 18 IV Insertion 1 Attempts Ultrasound Used for No Placement IV Site Assessment WNL IV Care and WNL Maintenance IV / Saline Lock, Insert Start: 07/06/25 10:31 Freq: STAT Status: Active Protocol: Document 07/06/25 10:53 ON LICENSE OF [facility] (Rec: 07/06/25 10:53 ON LICENSE OF [facility] [id number]) IV Assessment Peripheral Access Left Wrist IV Catheter Access Initiated IV Insertion Date 07/06/25 IV Insertion Time 10:53 PA: Cardiovascular Assessment Start: 07/06/25 10:15 Freq: Status: Active Protocol: Document 07/06/25 10:30 JJJ (Rec: 07/06/25 10:37 JJJ [id number]) Cardiovascular Assessment Cardiovascular None Symptoms Skin Description Normal Color Heart Sounds Normal PA: Respiratory Assessment Start: 07/06/25 10:15 Freq: Status: Active Protocol: Document 07/06/25 10:30 JPaulJ (Rec: 07/06/25 10:37 JJJ [id number]) Respiratory Assessment Symptoms Cough,Shortness of Breath at Rest Effort Labored Pattern Tachypnea Depth Normal Chest Expansion Symmetrical Adult Capillary Normal/Less than 2 Seconds Refill Cough Frequency Intermittent Sputum Amount None Additional per family pt has pink tinged sputum w/ cough starting Respiratory Comments 2 days ago Oxygen Delivery Oxygen Delivery Room Air Last Vital Signs Pulse Rate 63 07/06/25 13:04 Respiratory Rate 27 H 07/06/25 13:04 Pulse Oximetry 96 07/06/25 13:04 Blood Pressure 111/62 07/06/25 13:04 Blood Pressure Mean 78 07/06/25 13:04 Blood Pressure Position Sitting 07/06/25 13:04 Oxygen Delivery Room Air 07/06/25 10:30 Weight 75.4 kg 07/06/25 10:30 Last Result - Abnormals Only WBC 12.3 K/mm3 (4.5-10.0) H 07/06/25 11:03 RBC 3.39 M/mm3 (4.2-5.4) L 07/06/25 11:03 Hgb 11.5 g/dL (12.0-15.0) L 07/06/25 11:03 Hct 34.5 % (37.0-47.0) L 07/06/25 11:03 MCV 101.8 fl (80-100) H 07/06/25 11:03 Neut % (Auto) 73.2 % (45.5-73.1) H 07/06/25 11:03 Lymph % (Auto) 10.4 % (18.3-44.2) L 07/06/25 11:03 [place] % (Auto) 14.3 % (2.6-8.5) H 07/06/25 11:03 [place] # (Auto) 1.8 K/mm3 (0.1-0.6) H 07/06/25 11:03 Abs Immat Gran (auto) 0.05 K/mm3 (0.00-0.031) H 07/06/25 11:03 Absolute Neuts (auto) 9.0 K/mm3 (1.3-6.7) H 07/06/25 11:03 PT 15.1 Seconds (11.1-14.7) H 07/06/25 11:03 Chloride 108 mmol/L (98-107) H 07/06/25 11:03 Carbon Dioxide 17 mmol/L (22-30) L 07/06/25 11:03 Anion Gap 13 mmol/L (4-12) H 07/06/25 11:03 BUN 33 mg/dL (7-17) H D 07/06/25 11:03 Creatinine 1.31 mg/dL (0.7-1.0) H 07/06/25 11:03 Estimated GFR 38 (59-) L 07/06/25 11:03 Glucose 133 mg/dL (65-110) H 07/06/25 11:03 Troponin I 0.045 ng/mL (0.000-0.034) H* 07/06/25 11:03 NT-Pro-B Natriuret Pep 1980 pg/mL (19.9-100) H 07/06/25 11:03
--- NOTE | 2025-07-06 13:07 | WPCEDHO ---
ED Hand Off Checklist All vitals saved: IV Site documented: All med administrations documented: Triage Note Triage Note Patient started having SOB and 07/06/25 10:30 cough since saturday07/04/25, per family patient might have aspirated while eating dinner and has started having signs of increased WOB and dyspnea. Allergies No Known Allergies Allergy (Verified 10/08/24 11:16) Family History (Last Updated 10/07/24 @ 22:43 by Kathy Lusi, RN) Father Alzheimer dementia UTI (urinary tract infection) Mother UTI (urinary tract infection) Administered/Completed Medications Discontinued Medications Sodium Chloride (Normal Saline Iv) 500 mls @ 999 mls/hr IV CONT .Q31M STA Stop: 07/06/25 11:19 Last Infusion: 07/06/25 11:52 Dose: Infused Documented By: JORGE LUIS Admin: 07/06/25 11:01 Dose: 999 mls/hr Documented By: JORGE LUIS Notes 07/06/25 13:05 ED Hand Off by Milena Kurtz ED Hand Off Checklist All vitals saved: yes IV Site documented: yes All med administrations documented: yes Triage Note Triage Note Patient started having SOB and 07/06/25 10:30 cough since saturday07/04/25, per family patient might have aspirated while eating dinner and has started having signs of increased WOB and dyspnea. Allergies No Known Allergies Allergy (Verified 10/08/24 11:16) Family History (Last Updated 10/07/24 @ 22:43 by Kathy Luis, RN) Father Alzheimer dementia UTI (urinary tract infection) Mother UTI (urinary tract infection) Administered/Completed Medications Discontinued Medications Sodium Chloride (Normal Saline Iv) 500 mls @ 999 mls/hr IV CONT .Q31M STA Stop: 07/06/25 11:19 Last Infusion: 07/06/25 11:52 Dose: Infused Documented By: JORGE LUIS Admin: 07/06/25 11:01 Dose: 999 mls/hr Documented By: JORGE LUIS Interventions/Assessments IV / Saline Lock, Insert Start: 07/06/25 10:15 Freq: Status: Active Protocol: Document 07/06/25 10:30 JORGE LUIS (Rec: 07/06/25 10:37 JORGE LUIS [id number]) IV Assessment Peripheral Access Left Wrist IV Catheter Access Initiated IV Insertion Date 07/06/25 IV Insertion Time 10:36 Catheter Gauge 18 IV Insertion 1 Attempts Ultrasound Used for No Placement IV Site Assessment WNL IV Care and WNL Maintenance IV / Saline Lock, Insert Start: 07/06/25 10:31 Freq: STAT Status: Active Protocol: Document 07/06/25 10:53 TMH (Rec: 07/06/25 10:53 TMH [id number]) IV Assessment Peripheral Access Left Wrist IV Catheter Access Initiated IV Insertion Date 07/06/25 IV Insertion Time 10:53 PA: Cardiovascular Assessment Start: 07/06/25 10:15 Freq: Status: Active Protocol: Document 07/06/25 10:30 JJJ (Rec: 07/06/25 10:37 JJJ [id number]) Cardiovascular Assessment Cardiovascular None Symptoms Skin Description Normal Color Heart Sounds Normal PA: Respiratory Assessment Start: 07/06/25 10:15 Freq: Status: Active Protocol: Document 07/06/25 10:30 JJJ (Rec: 07/06/25 10:37 JJJ [id number]) Respiratory Assessment Symptoms Cough,Shortness of Breath at Rest Effort Labored Pattern Tachypnea Depth Normal Chest Expansion Symmetrical Adult Capillary Normal/Less than 2 Seconds Refill Cough Frequency Intermittent Sputum Amount None Additional per family pt has pink tinged sputum w/ cough starting Respiratory Comments 2 days ago Oxygen Delivery Oxygen Delivery Room Air Last Vital Signs Pulse Rate 63 07/06/25 13:04 Respiratory Rate 27 H 07/06/25 13:04 Pulse Oximetry 96 07/06/25 13:04 Blood Pressure 111/62 07/06/25 13:04 Blood Pressure Mean 78 07/06/25 13:04 Blood Pressure Position Sitting 07/06/25 13:04 Oxygen Delivery Room Air 07/06/25 10:30 Weight 75.4 kg 07/06/25 10:30 Last Result - Abnormals Only WBC 12.3 K/mm3 (4.5-10.0) H 07/06/25 11:03 RBC 3.39 M/mm3 (4.2-5.4) L 07/06/25 11:03 Hgb 11.5 g/dL (12.0-15.0) L 07/06/25 11:03 Hct 34.5 % (37.0-47.0) L 07/06/25 11:03 MCV 101.8 fl (80-100) H 07/06/25 11:03 Neut % (Auto) 73.2 % (45.5-73.1) H 07/06/25 11:03 Lymph % (Auto) 10.4 % (18.3-44.2) L 07/06/25 11:03 Dyer % (Auto) 14.3 % (2.6-8.5) H 07/06/25 11:03 Dyer # (Auto) 1.8 K/mm3 (0.1-0.6) H 07/06/25 11:03 Abs Immat Gran (auto) 0.05 K/mm3 (0.00-0.031) H 07/06/25 11:03 Absolute Neuts (auto) 9.0 K/mm3 (1.3-6.7) H 07/06/25 11:03 PT 15.1 Seconds (11.1-14.7) H 07/06/25 11:03 Chloride 108 mmol/L (98-107) H 07/06/25 11:03 Carbon Dioxide 17 mmol/L (22-30) L 07/06/25 11:03 Anion Gap 13 mmol/L (4-12) H 07/06/25 11:03 BUN 33 mg/dL (7-17) H D 07/06/25 11:03 Creatinine 1.31 mg/dL (0.7-1.0) H 07/06/25 11:03 Estimated GFR 38 (59-) L 07/06/25 11:03 Glucose 133 mg/dL (65-110) H 07/06/25 11:03 Troponin I 0.045 ng/mL (0.000-0.034) H* 07/06/25 11:03 NT-Pro-B Natriuret Pep 1980 pg/mL (19.9-100) H 07/06/25 11:03 Initialized on 07/06/25 13:05 - END OF NOTE Interventions/Assessments IV / Saline Lock, Insert Start: 07/06/25 10:15 Freq: Status: Active Protocol: Document 07/06/25 10:30 JORGE LUIS (Rec: 07/06/25 10:37 JORGE LUIS [id number]) IV Assessment Peripheral Access Left Wrist IV Catheter Access Initiated IV Insertion Date 07/06/25 IV Insertion Time 10:36 Catheter Gauge 18 IV Insertion 1 Attempts Ultrasound Used for No Placement IV Site Assessment WNL IV Care and WNL Maintenance IV / Saline Lock, Insert Start: 07/06/25 10:31 Freq: STAT Status: Active Protocol: Document 07/06/25 10:53 TMH (Rec: 07/06/25 10:53 TMH [id number]) IV Assessment Peripheral Access Left Wrist IV Catheter Access Initiated IV Insertion Date 07/06/25 IV Insertion Time 10:53 PA: Cardiovascular Assessment Start: 07/06/25 10:15 Freq: Status: Active Protocol: Document 07/06/25 10:30 JJJ (Rec: 07/06/25 10:37 JJJ [id number]) Cardiovascular Assessment Cardiovascular None Symptoms Skin Description Normal Color Heart Sounds Normal PA: Respiratory Assessment Start: 07/06/25 10:15 Freq: Status: Active Protocol: Document 07/06/25 10:30 JJJ (Rec: 07/06/25 10:37 JJJ [id number]) Respiratory Assessment Symptoms Cough,Shortness of Breath at Rest Effort Labored Pattern Tachypnea Depth Normal Chest Expansion Symmetrical Adult Capillary Normal/Less than 2 Seconds Refill Cough Frequency Intermittent Sputum Amount None Additional per family pt has pink tinged sputum w/ cough starting Respiratory Comments 2 days ago Oxygen Delivery Oxygen Delivery Room Air Last Vital Signs Temperature 97.9 F 07/06/25 13:07 Pulse Rate 63 07/06/25 13:04 Respiratory Rate 27 H 07/06/25 13:04 Pulse Oximetry 96 07/06/25 13:04 Blood Pressure 111/62 07/06/25 13:04 Blood Pressure Mean 78 07/06/25 13:04 Blood Pressure Position Sitting 07/06/25 13:04 Oxygen Delivery Room Air 07/06/25 10:30 Weight 75.4 kg 07/06/25 10:30 Last Result - Abnormals Only WBC 12.3 K/mm3 (4.5-10.0) H 07/06/25 11:03 RBC 3.39 M/mm3 (4.2-5.4) L 07/06/25 11:03 Hgb 11.5 g/dL (12.0-15.0) L 07/06/25 11:03 Hct 34.5 % (37.0-47.0) L 07/06/25 11:03 MCV 101.8 fl (80-100) H 07/06/25 11:03 Neut % (Auto) 73.2 % (45.5-73.1) H 07/06/25 11:03 Lymph % (Auto) 10.4 % (18.3-44.2) L 07/06/25 11:03 Dyer % (Auto) 14.3 % (2.6-8.5) H 07/06/25 11:03 Dyer # (Auto) 1.8 K/mm3 (0.1-0.6) H 07/06/25 11:03 Abs Immat Gran (auto) 0.05 K/mm3 (0.00-0.031) H 07/06/25 11:03 Absolute Neuts (auto) 9.0 K/mm3 (1.3-6.7) H 07/06/25 11:03 PT 15.1 Seconds (11.1-14.7) H 07/06/25 11:03 Chloride 108 mmol/L (98-107) H 07/06/25 11:03 Carbon Dioxide 17 mmol/L (22-30) L 07/06/25 11:03 Anion Gap 13 mmol/L (4-12) H 07/06/25 11:03 BUN 33 mg/dL (7-17) H D 07/06/25 11:03 Creatinine 1.31 mg/dL (0.7-1.0) H 07/06/25 11:03 Estimated GFR 38 (59-) L 07/06/25 11:03 Glucose 133 mg/dL (65-110) H 07/06/25 11:03 Troponin I 0.045 ng/mL (0.000-0.034) H* 07/06/25 11:03 NT-Pro-B Natriuret Pep 1980 pg/mL (19.9-100) H 07/06/25 11:03
--- NOTE | 2025-07-06 13:30 | PM.IMHP ---
H&P: HPI History of Present Illness Date/Time: 07/06/25 13:30 Chief Complaint: Shortness of breath and cough Narrative: 84-year-old female past medical history of Alzheimer's dementia, hypertension, hyperlipidemia, CHF presents to the ED on 07/06/2025 with shortness of breath and cough for the past 2 days. HPI provided by patient's family. The family states that she has had some dyspnea on exertion over the past couple days as well. Baseline room air at home. Patient lives at home with her son. The son states patient started coughing a lot while eating dinner last night and had an extended period of shortness of breath after that episode. Patient is at her normal baseline mentation on presentation to the ED. per family, patient is more tired than normal. Initial vital signs 98/60, HR 76, respirations 30, afebrile and 96% on room air WBC 12.3, baseline anemia, chloride 108, carbon dioxide 17, anion gap 13, BUN 33, creatinine 1.31, GFR 38, glucose 133, troponin 0.045, BNP 1980. Viral panel negative EKG sinus rhythm, unchanged from previous Chest x-ray moderate pulmonary venous congestion-CHF Review of Systems Review of Systems: All systems reviewed & are unremarkable except as noted in HPI and below PMFSH Past Medical History Medical History (Updated 07/06/25 @ 16:06 by Danna Penaloza APRN) Hypertension Dementia Dyslipidemia Family History Family History (Updated 10/07/24 @ 22:43 by Kathy Luis RN) Father Alzheimer dementia UTI (urinary tract infection) Mother UTI (urinary tract infection) Social History Social History Years smoked: 15 Smoking status: Former smoker Tobacco type: cigarettes Alcohol intake: never Substance use: never Substance use type: does not use Do You Feel Safe in your Home?: Yes Lack of Transportation: No Lack of Food: Never True Current Housing: I Have Housing Concerned About Future Housing: No Difficulty Paying Gas/Electric Bills: No Difficulty Paying for Meds: No Currently Unemployed: No Education: High School Diploma/GED Difficulty w/ Childcare or Family Care: No Spiritual care concerns: No Meds Home Medications and Allergies Home Medications ?Medication ?Instructions ?Recorded ?Confirmed ?Type alendronate 70 mg tablet 70 mg PO WEEKLY 10/07/24 07/06/25 History aspirin 81 mg tablet,delayed 81 mg PO DAILY 10/07/24 07/06/25 History release (Adult Low Dose Aspirin) atorvastatin 40 mg tablet 40 mg PO QHS 10/07/24 07/06/25 History donepezil 10 mg tablet 10 mg PO DAILY 10/07/24 07/06/25 History fenofibrate 160 mg tablet 160 mg PO DAILY 10/07/24 07/06/25 History isosorbide mononitrate 30 mg 30 mg PO DAILY 10/07/24 07/06/25 History tablet,extended release 24 hr levothyroxine 88 mcg tablet 88 mcg PO DAILY@0630 10/07/24 07/06/25 History lisinopril 10 mg tablet 10 mg PO DAILY 10/07/24 07/06/25 History memantine 10 mg tablet 20 mg PO DAILY 10/07/24 07/06/25 History metoprolol succinate 25 mg 25 mg PO DAILY 10/07/24 07/06/25 History tablet,extended release 24 hr nifedipine 30 mg tablet,extended 30 mg PO DAILY 10/07/24 07/06/25 History release 24 hr om [facility] 1 cap PO DAILY 10/07/24 07/06/25 History furosemide 20 mg tablet 20 mg PO DAILY #30 tabs 10/10/24 07/06/25 Rx acetaminophen 650 mg 1,300 mg PO Q8H PRN pain 07/06/25 07/06/25 History tablet,extended release (8 Hour Pain Reliever) Allergies Allergy/AdvReac Type Severity Reaction Status Date / Time No Known Allergies Allergy Verified 07/06/25 13:51 Vital Signs Vital Signs - 24 hr 07/06/25 10:30 07/06/25 10:30 07/06/25 10:37 Temperature Pulse Rate 76 77 Respiratory Rate 30 H 20 Blood Pressure 98/60 L 85/70 L Pulse Oximetry 96 95 Oxygen Delivery Room Air Room Air 07/06/25 10:38 07/06/25 10:39 07/06/25 10:45 Temperature Pulse Rate 73 70 71 Respiratory Rate 22 H 19 29 H Blood Pressure 92/48 L Pulse Oximetry 95 95 95 Oxygen Delivery 07/06/25 10:46 07/06/25 10:48 07/06/25 11:00 Temperature Pulse Rate 71 73 Respiratory Rate 35 H 22 H Blood Pressure 90/44 L 93/58 L Pulse Oximetry 94 95 94 Oxygen Delivery 07/06/25 11:01 07/06/25 11:05 07/06/25 11:19 Temperature Pulse Rate 70 60 Respiratory Rate 19 18 Blood Pressure 81/45 L 89/42 L Pulse Oximetry 95 95 93 Oxygen Delivery 07/06/25 11:30 07/06/25 11:31 07/06/25 12:01 Temperature Pulse Rate 61 62 60 Respiratory Rate 22 H 21 H 19 Blood Pressure 99/44 L 95/48 L Pulse Oximetry 94 97 95 Oxygen Delivery 07/06/25 12:02 07/06/25 12:24 07/06/25 13:04 Temperature Pulse Rate 61 66 63 Respiratory Rate 19 26 H 27 H Blood Pressure 111/62 Pulse Oximetry 95 95 96 Oxygen Delivery 07/06/25 13:07 07/06/25 13:11 07/06/25 13:15 Temperature 97.9 F Pulse Rate 60 64 Respiratory Rate 19 16 Blood Pressure Pulse Oximetry 94 94 Oxygen Delivery 07/06/25 13:16 Temperature Pulse Rate 60 Respiratory Rate 19 Blood Pressure 109/55 L Pulse Oximetry 96 Oxygen Delivery Exam Narrative: GENERAL: non-toxic appearing, in no acute distress. HEAD: Normocephalic, atraumatic. EYES: PERRLA. Conjunctivae clear. NOSE: Normal no drainage. THROAT: Pharynx clear, no exudate. NECK: Trachea midline. No adenopathy, no masses. RESPIRATORY: Airway patent, mildly tachypneic. Coarse lung sounds bilaterally CARDIOVASCULAR: Regular rate and rhythm BREASTS: Defer GASTROINTESTINAL: Abdomen is soft and nontender. No organomegaly. Bowel sounds normal in all quadrants. GENITOURINARY: PureWick in place MUSCULOSKELETAL: Moves all extremities. No gross deformities. SKIN: Warm, dry, normal color. NEURO: A&O X2. Speech clear. PSYCHIATRIC: Normal interaction H&P: Results Labs Labs: Short CBC 07/06/25 Range/Units 11:03 WBC 12.3 H (4.5-10.0) K/mm3 Hgb 11.5 L (12.0-15.0) g/dL Hct 34.5 L (37.0-47.0) % Plt Count 228 (150-375) k/mm3 [facility] 07/06/25 11:03 Sodium 138 Potassium 4.3 Chloride 108 H Carbon Dioxide 17 L BUN 33 H D Creatinine 1.31 H Glucose 133 H Calcium 9.8 Cardiac Enzymes 07/06/25 Range/Units 11:03 Troponin I 0.045 H* (0.000-0.034) ng/mL Liver Function 07/06/25 Range/Units 11:03 Total Bilirubin 0.6 (0.2-1.3) mg/dL AST 29 (14-36) U/L ALT 22 (6-35) U/L Alkaline Phosphatase 48 (38-126) U/L Albumin 4.3 (3.5-5.1) g/dL Assessment and Plan Assessment and plan (1) CHF (congestive heart failure): Qualifiers: Heart failure type: unspecified Heart failure chronicity: acute Qualified Code(s): I50.9 - Heart failure, unspecified Code(s): I50.9 - Heart failure, unspecified Status: Acute Assessment and Plan: Presents from home with family with increased dyspnea on exertion and cough for the past 2 days. Family states patient is more tired than usual. Chest x-ray moderate pulmonary venous congestion-CHF - BNP and 1979 - most recent echo on 10/08/24 revealed EF 50-55%, grade 1 diastolic dysfunction, LA moderately enlarged, mitral valve annulus is severely calcified, mild mitral and tricuspid regurg. - currently on: 20 mg p.o. Lasix - monitor I&Os and daily weights - 40 mg IVP Lasix x1 - resume home dose on 07/07 - monitor respiratory status - trend renal function - not requiring supplemental O2 (2) Dementia: Qualifiers: Alzheimer's disease onset: unspecified onset Dementia behavioral or psychological symptom: unspecified whether behavioral, psychotic, or mood disturbance or anxiety Dementia severity: unspecified severity Dementia type: Alzheimer's Qualified Code(s): G30.9 - Alzheimer's disease, unspecified; F02.80 - Dementia in other diseases classified elsewhere, unspecified severity, without behavioral disturbance, psychotic disturbance, mood disturbance, and anxiety Code(s): F03.90 - Unspecified dementia, unspecified severity, without behavioral disturbance, psychotic disturbance, mood disturbance, and anxiety Status: Chronic Assessment and Plan: Continue Namenda and Aricept (3) Leukocytosis: Qualifiers: Leukocytosis type: unspecified Qualified Code(s): D72.829 - Elevated white blood cell count, unspecified Code(s): D72.829 - Elevated white blood cell count, unspecified Status: Acute Assessment and Plan: Patient afebrile without concern for pneumonia on chest x-ray. No complaints of urinary symptoms. -UA pending (4) Hypertension: Qualifiers: Hypertension type: primary hypertension Qualified Code(s): I10 - Essential (primary) hypertension Code(s): I10 - Essential (primary) hypertension Status: Chronic Assessment and Plan: BP has been soft. Initial BP 98/60. Systolic blood pressure has largely remained in the 90s with diastolics in the 40s and 50s. Maps in the high 50s to low 60s -continue lisinopril, metoprolol on 07/07 pending blood pressure -hold isosorbide and nifedipine for now to allow room for diuresis -consider deescalating antihypertensives (5) Dyslipidemia: Code(s): E78.5 - Hyperlipidemia, unspecified Status: Acute Assessment and Plan: Continue Lipitor, fenofibrate Plan Diet: Heart healthy GI prophylaxis: NA DVT prophylaxis: Heparin subcutaneous lines/drains: PIV Fluids: 500 mL bolus Code status: DNR Quality VTE Prophylaxis VTE prophylaxis: pharmacologic ordered Hospitalist MIPS Advance Care Plan I have confirmed that the patient's Advanced Care Plan is present, code status is documented, or surrogate decision maker is listed in patient medical record.: Yes Medication Reconciliation I have utilized all available resources to obtain, update and review the patients current medications (includes all prescriptions, OTC, herbals, cannabis, and nutritional supplements).: Yes
--- NOTE | 2025-07-06 13:36 | ADMGEN ---
This patient, Salome Rich, was admitted to IMU Room 206-01. Patient/family oriented to hospital policies and general routines including ID bracelet, bed and alarms, visiting hours, pain management, procedures, bathroom and other care routines, personal items, smoking policy, room service/diet, and visiting hours. Information on how to activate the Rapid Response Team has been discussed. Patient/Family are encouraged to report perceived risks to care and to ask questions if they do not understand what they are told or what they should do.
[2025-07-06] MEDS: FUROSEMIDE INJ 40 MG/4 ML VIAL IV PUSH (16:58)
--- NOTE | 2025-07-06 17:54 | PCRCNOTE ---
Spoke with daughter in law and patient has not smoked for 20 years.
[2025-07-06 18:03] LABS: Add Urine Microscopic? YES; Appearance Urine Cloudy (Clear); Glucose Urine UA Negative (Negative); Leukocyte Esterase Ur 3+ LEU/UL (Negative); Need Manual Microscopic Reviewed; Nitrate Urine Positive (Negative); Specific Grav Ur 1.014 (1.001-1.035)
[2025-07-06] MEDS: ATORVASTATIN 40 MG TABLET PO (20:13)
[2025-07-06] MEDS: IPRATROPIUM 0.5 MG/ALBUTEROL SULFATE 2.5 MG (BASE) AMPUL.NEB 3 ML INHALATION (22:10)
[2025-07-06] MEDS: cefTRIAXone 1 GM in SODIUM CHLORIDE 0.9% IV 50 ML 100 ML IVPB (22:28)
[2025-07-06 22:39] LABS: Troponin I 0.023 ng/mL (0.000-0.034)
[2025-07-06] MEDS: FUROSEMIDE INJ 40 MG/4 ML VIAL 20 MG IV PUSH (23:47)
[2025-07-07] VITALS (20 sets, daily range): BP systolic 124–144; BP diastolic 53–73; PULSE 70–102; RESP 16–22; TEMP 36.7–38.1; O2SAT 94–100
[2025-07-07] MEDS: IPRATROPIUM 0.5 MG/ALBUTEROL SULFATE 2.5 MG (BASE) AMPUL.NEB 3 ML INHALATION ×4 (01:50→20:08)
[2025-07-07 04:05] LABS: Hematocrit 32.6 % (37.0-47.0); Hemoglobin 10.6 g/dL (12.0-15.0); Immature Granulocyte Percent A 0.4 % (0-0.5); Lymphocytes Absolute Auto 1.83 K/mm3 (0.9-3.2); Mean Corpuscular HGB Conc 32.5 g/dl (32-36); Mean Corpuscular Hemoglobin 33.2 pg (26-34); Mean Corpuscular Volume 102.2 fl (80-100); Nucleated Red Blood Cells Absolute Auto 0.000 K/mm3 (0.0-0.012); Nucleated Red Blood Cells Perc 0.0 % (0.0-0.2); Platelet Count Result 201 k/mm3 (150-375); Red Blood Count 3.19 M/mm3 (4.2-5.4); White Blood Count 10.4 K/mm3 (4.5-10.0)
[2025-07-07 04:30] LABS: Anion Gap 10 mmol/L (4-12); Blood Urea Nitrogen 41 mg/dL (7-17); Calcium 9.0 mg/dL (8.4-10.2); Carbon Dioxide 19 mmol/L (22-30); Chloride 106 mmol/L (98-107); Estimated CRCL calculation 28 ml/min; Estimated Glomerular Filt Rate 43; Glucose 111 mg/dL (65-110); Potassium 3.9 mmol/L (3.4-5.0); Sodium 135 mmol/L (137-145)
[2025-07-07] MEDS: LEVOTHYROXINE SODIUM 88 MCG TABLET PO (06:03)
[2025-07-07] MEDS: ALENDRONATE SODIUM 70 MG TABLET PO (06:03)
[2025-07-07] MEDS: FUROSEMIDE 20 MG TABLET PO (09:22)
[2025-07-07] MEDS: FENOFIBRATE 145 MG TABLET PO (09:22)
[2025-07-07] MEDS: ASPIRIN 81 MG ENTERIC TABLET PO (09:22)
[2025-07-07] MEDS: MEMANTINE 10 MG TABLET 20 MG PO (09:23)
[2025-07-07] MEDS: DONEPEZIL HCL 10 MG TABLET PO (09:23)
[2025-07-07] MEDS: METOPROLOL SUCCINATE EXT REL 25 MG TABCR PO (09:23)
--- NOTE | 2025-07-07 11:23 | P.PNIM_ITS ---
Progress Note: A&P Assessment and Plan (1) CHF (congestive heart failure): Qualifiers: Heart failure type: unspecified Heart failure chronicity: acute Qualified Code(s): I50.9 - Heart failure, unspecified Code(s): I50.9 - Heart failure, unspecified Status: Acute Assessment and Plan: Presents from home with family with increased dyspnea on exertion and cough for the past 2 days. Family states patient is more tired than usual. Chest x-ray moderate pulmonary venous congestion-CHF - BNP and 1979 - most recent echo on 10/08/24 revealed EF 50-55%, grade 1 diastolic dysfunction, LA moderately enlarged, mitral valve annulus is severely calcified, mild mitral and tricuspid regurg. - currently on: 20 mg p.o. Lasix - monitor I&Os and daily weights - 40 mg IVP Lasix x1 - resume home dose on 07/07 - monitor respiratory status - trend renal function - not requiring supplemental O2 (2) Dementia: Qualifiers: Dementia type: Alzheimer's Alzheimer's disease onset: unspecified onset Dementia severity: unspecified severity Dementia behavioral or psychological symptom: unspecified whether behavioral, psychotic, or mood disturbance or anxiety Qualified Code(s): G30.9 - Alzheimer's disease, unspecified; F02.80 - Dementia in other diseases classified elsewhere, unspecified severity, without behavioral disturbance, psychotic disturbance, mood disturbance, and anxiety Code(s): F03.90 - Unspecified dementia, unspecified severity, without behavioral disturbance, psychotic disturbance, mood disturbance, and anxiety Status: Chronic Assessment and Plan: Continue Namenda and Aricept (3) Leukocytosis: Qualifiers: Leukocytosis type: unspecified Qualified Code(s): D72.829 - Elevated white blood cell count, unspecified Code(s): D72.829 - Elevated white blood cell count, unspecified Status: Acute Assessment and Plan: Patient afebrile without concern for pneumonia on chest x-ray. Most likely urine tract infection. Culture pending. (4) Hypertension: Qualifiers: Hypertension type: primary hypertension Qualified Code(s): I10 - Essential (primary) hypertension Code(s): I10 - Essential (primary) hypertension Status: Chronic Assessment and Plan: BP has been soft. Initial BP 98/60. Systolic blood pressure has largely remained in the 90s with diastolics in the 40s and 50s. Maps in the high 50s to low 60s -continue lisinopril, metoprolol on 07/07 pending blood pressure -hold isosorbide and nifedipine for now to allow room for diuresis -consider deescalating antihypertensives (5) Dyslipidemia: Code(s): E78.5 - Hyperlipidemia, unspecified Status: Acute Assessment and Plan: Continue Lipitor, fenofibrate Plan Diet: Heart healthy GI prophylaxis: NA DVT prophylaxis: Heparin subcutaneous lines/drains: PIV Code status: DNR Subjective Date/time seen: 07/07/25 11:23 Interval history: Patient was seen during the morning rounds today. No new complaints. Mild shortness of breath, no chest pain. No abdominal pain, nausea, no vomiting. Review of Systems Review of Systems: All systems reviewed & are unremarkable except as noted in HPI and below Exam Narrative: GENERAL: non-toxic appearing, in no acute distress. HEAD: Normocephalic, atraumatic. EYES: PERRLA. Conjunctivae clear. NOSE: Normal no drainage. THROAT: Pharynx clear, no exudate. NECK: Trachea midline. No adenopathy, no masses. RESPIRATORY: Airway patent, mildly tachypneic. Coarse lung sounds bilaterally CARDIOVASCULAR: Regular rate and rhythm BREASTS: Defer GASTROINTESTINAL: Abdomen is soft and nontender. No organomegaly. Bowel sounds normal in all quadrants. GENITOURINARY: PureWick in place MUSCULOSKELETAL: Moves all extremities. No gross deformities. SKIN: Warm, dry, normal color. NEURO: A&O X2. Speech clear. PSYCHIATRIC: Normal interaction Objective Data Vital Signs Vital Signs: Vital Signs - 24 hr 07/06/25 11:30 07/06/25 11:31 07/06/25 12:01 Temperature Pulse Rate 61 62 60 Respiratory Rate 22 H 21 H 19 Blood Pressure 99/44 L 95/48 L Pulse Oximetry 94 97 95 Oxygen Delivery Oxygen Flow Rate 07/06/25 12:02 07/06/25 12:24 07/06/25 13:04 Temperature Pulse Rate 61 66 63 Respiratory Rate 19 26 H 27 H Blood Pressure 111/62 Pulse Oximetry 95 95 96 Oxygen Delivery Oxygen Flow Rate 07/06/25 13:07 07/06/25 13:11 07/06/25 13:15 Temperature 36.6 C Pulse Rate 60 64 Respiratory Rate 19 16 Blood Pressure Pulse Oximetry 94 94 Oxygen Delivery Oxygen Flow Rate 07/06/25 13:16 07/06/25 14:00 07/06/25 16:00 Temperature 36.7 C Pulse Rate 60 73 65 Respiratory Rate 19 24 H Blood Pressure 109/55 L 121/58 L Pulse Oximetry 96 98 Oxygen Delivery Oxygen Flow Rate 07/06/25 16:00 07/06/25 18:00 07/06/25 19:55 Temperature Pulse Rate 67 75 77 Respiratory Rate 22 H Blood Pressure Pulse Oximetry 96 Oxygen Delivery Room Air Oxygen Flow Rate 07/06/25 20:00 07/06/25 20:00 07/06/25 22:00 Temperature 36.8 C Pulse Rate 77 78 86 Respiratory Rate 22 H Blood Pressure 125/67 Pulse Oximetry 96 Oxygen Delivery Oxygen Flow Rate 07/06/25 22:05 07/06/25 22:13 07/06/25 22:15 Temperature Pulse Rate 84 89 85 Respiratory Rate 23 H 24 H 24 H Blood Pressure Pulse Oximetry 94 Oxygen Delivery Room Air Oxygen Flow Rate 07/06/25 22:30 07/06/25 23:43 07/07/25 00:00 Temperature 36.9 C Pulse Rate 88 82 82 Respiratory Rate 22 H 22 H 22 H Blood Pressure 144/56 H Pulse Oximetry 97 99 99 Oxygen Delivery Nasal Cannula Nasal Cannula Oxygen Flow Rate 2 2 07/07/25 00:00 07/07/25 01:50 07/07/25 01:55 Temperature Pulse Rate 84 82 83 Respiratory Rate 18 18 Blood Pressure Pulse Oximetry Oxygen Delivery Oxygen Flow Rate 07/07/25 02:00 07/07/25 03:05 07/07/25 04:00 Temperature Pulse Rate 80 78 73 Respiratory Rate 22 H Blood Pressure Pulse Oximetry 97 Oxygen Delivery Nasal Cannula Oxygen Flow Rate 2 07/07/25 04:00 07/07/25 06:00 07/07/25 07:21 Temperature 38.1 C H Pulse Rate 78 87 Respiratory Rate 22 H Blood Pressure 124/53 L Pulse Oximetry 97 99 Oxygen Delivery Nasal Cannula Oxygen Flow Rate 2 07/07/25 07:23 07/07/25 07:30 07/07/25 08:00 Temperature 37.0 C Pulse Rate 78 75 102 H Respiratory Rate 18 18 22 H Blood Pressure 137/56 L Pulse Oximetry 100 Oxygen Delivery Oxygen Flow Rate 07/07/25 08:00 07/07/25 08:00 07/07/25 08:02 Temperature Pulse Rate 85 81 Respiratory Rate 22 H Blood Pressure Pulse Oximetry 96 96 Oxygen Delivery Room Air Room Air Oxygen Flow Rate 07/07/25 09:23 07/07/25 10:00 Temperature Pulse Rate 85 72 Respiratory Rate Blood Pressure Pulse Oximetry Oxygen Delivery Oxygen Flow Rate Intake/Output Intake/Output: Intake & Output 07/04/25 07/05/25 07/06/25 07/07/25 23:59 23:59 23:59 23:59 Intake Total 940 Output Total 650 750 Balance 290 -750 Meds/Results Medications: Active Medications Generic Name Dose Route Start Last Admin Trade Name Freq PRN Reason Stop Dose Admin Acetaminophen 650 mg 07/07/25 06:35 Acetaminophen 325 Mg Tablet PO Q4H PRN Mild Pain (1-3) or Fever Albuterol/Ipratropium 3 ml 07/07/25 02:00 07/07/25 07:21 Ipratropium 0.5 Mg/Albuterol Sulfate 2.5 Mg (Base) Ampul.Neb 3 Ml INHALATION 3 ml Q6HRT WEN Administration Alendronate Sodium 70 mg 07/07/25 06:30 07/07/25 06:03 Alendronate Sodium 70 Mg Tablet PO 70 mg WEEKLY@0630 WEN Administration Aspirin 81 mg 07/07/25 09:00 07/07/25 09:22 Aspirin 81 Mg Enteric Tablet PO 81 mg DAILY WEN Administration Atorvastatin Calcium 40 mg 07/06/25 21:00 07/06/25 20:13 Atorvastatin 40 Mg Tablet PO 40 mg QHS WEN Administration Donepezil HCl 10 mg 07/07/25 09:00 07/07/25 09:23 Donepezil Hcl 10 Mg Tablet PO 10 mg DAILY WEN Administration Fenofibrate 145 mg 07/07/25 09:00 07/07/25 09:22 Fenofibrate 145 Mg Tablet PO 145 mg QAM WEN Administration Furosemide 20 mg 07/07/25 09:00 07/07/25 09:22 Furosemide 20 Mg Tablet PO 20 mg DAILY WEN Administration Heparin Sodium (Porcine) 5,000 units 07/06/25 14:00 07/07/25 06:02 Heparin Sodium 5,000 Units/Ml Vial SUB-Q 5,000 units Q8HR WEN Administration Ceftriaxone Sodium 1 gm/ 50 mls @ 100 mls/hr 07/06/25 21:40 07/06/25 22:58 Sodium Chloride IVPB Infused HS WEN Infusion Isosorbide Mononitrate 30 mg 07/07/25 09:00 Isosorbide Mononitrate 30 Mg Tab.Er.24h PO On Hold: 07/07/25 09:00 DAILY WEN Levothyroxine Sodium 88 mcg 07/07/25 06:30 07/07/25 06:03 Levothyroxine Sodium 88 Mcg Tablet PO 88 mcg DAILY@0630 WEN Administration Lisinopril 10 mg 07/07/25 09:00 07/07/25 09:23 Lisinopril 10 Mg Tablet PO 10 mg DAILY WEN Administration Memantine 20 mg 07/07/25 09:00 07/07/25 09:23 Memantine 10 Mg Tablet PO 20 mg DAILY WEN Administration Metoprolol Succinate 25 mg 07/07/25 09:00 07/07/25 09:23 Metoprolol Succinate Ext Rel 25 Mg Tabcr PO 25 mg DAILY WEN Administration Nifedipine 30 mg 07/07/25 09:00 Nifedipine 30 Mg Tab.Er.24 PO On Hold: 07/07/25 09:00 DAILY [facility] Radiology Results: ITS Impressions Chest X-Ray 07/06/25 11:03 Impression: CHF Labs Labs: Laboratory Results - last 24 hr 07/06/25 07/06/25 07/06/25 11:03 17:44 22:12 WBC RBC Hgb Hct MCV MCH MCHC RDW Plt Count MPV Immature Gran % (Auto) Neut % (Auto) Lymph % (Auto) [place] % (Auto) Eos % (Auto) Baso % (Auto) Lymph # (Auto) [place] # (Auto) Eos # (Auto) Baso # (Auto) Abs Immat Gran (auto) Absolute Neuts (auto) Absolute Nucleated RBC Nucleated RBC % PT 15.1 H INR 1.2 APTT 30.4 Sodium 138 Potassium 4.3 Chloride 108 H Carbon Dioxide 17 L Anion Gap 13 H BUN 33 H D Creatinine 1.31 H Estim Creat Clear Calc 26 Estimated GFR 38 L Glucose 133 H POC Capillary Glucose Calcium 9.8 Total Bilirubin 0.6 AST 29 ALT 22 Alkaline Phosphatase 48 Troponin I 0.045 H* 0.023 NT-Pro-B Natriuret Pep 1980 H Total Protein 8.1 Albumin 4.3 Urine Color Yellow Urine Appearance Cloudy H Urine pH 5.0 Ur Specific [place] 1.014 Urine Protein Trace Urine Glucose (UA) Negative Urine Ketones Negative Ur Blood (Man) Trace Urine Nitrate Positive H Urine Bilirubin Negative Urine Urobilinogen 0.2 Add Ur Microanalysis Reviewed Leukocyte Esterase Rfl 3+ H Urine RBC 0-2 Urine WBC >100 H Ur Squamous Epith Cells Few Urine Bacteria 3+ H Urine Casts 11-20 Influenza A (RT-PCR) Negative Influenza B (RT-PCR) Negative RSV (RT-PCR) Negative SARS-CoV-2 RNA (RT-PCR) Negative 07/07/25 07/07/25 03:34 07:36 WBC 10.4 H RBC 3.19 L Hgb 10.6 L Hct 32.6 L MCV 102.2 H MCH 33.2 MCHC 32.5 RDW 12.7 Plt Count 201 MPV 10.0 Immature Gran % (Auto) 0.4 Neut % (Auto) 64.5 Lymph % (Auto) 17.6 L [place] % (Auto) 15.9 H Eos % (Auto) 0.9 Baso % (Auto) 0.7 Lymph # (Auto) 1.83 [place] # (Auto) 1.7 H Eos # (Auto) 0.1 Baso # (Auto) 0.1 Abs Immat Gran (auto) 0.04 H Absolute Neuts (auto) 6.7 Absolute Nucleated RBC 0.000 Nucleated RBC % 0.0 PT INR APTT Sodium 135 L Potassium 3.9 Chloride 106 Carbon Dioxide 19 L Anion Gap 10 BUN 41 H Creatinine 1.18 H Estim Creat Clear Calc 28 Estimated GFR 43 L Glucose 111 H POC Capillary Glucose 112 H Calcium 9.0 Total Bilirubin AST ALT Alkaline Phosphatase Troponin I NT-Pro-B Natriuret Pep Total Protein Albumin Urine Color Urine Appearance Urine pH Ur Specific [place] Urine Protein Urine Glucose (UA) Urine Ketones Ur Blood (Man) Urine Nitrate Urine Bilirubin Urine Urobilinogen Add Ur Microanalysis Leukocyte Esterase Rfl Urine RBC Urine WBC Ur Squamous Epith Cells Urine Bacteria Urine Casts Influenza A (RT-PCR) Influenza B (RT-PCR) RSV (RT-PCR) SARS-CoV-2 RNA (RT-PCR) Quality VTE Prophylaxis VTE prophylaxis: pharmacologic ordered
--- NOTE | 2025-07-07 14:42 | PC.NURSE ---
This patient, Salome Rich, was transferred to [[facility]- ] on 07/07/25 at 1442. Personal belongings sent with patient. Report given to [ JOSE Orona @ [phone]]. Appropriate documentation sent with patient. Family at bedside
[2025-07-07] MEDS: cefTRIAXone 1 GM in SODIUM CHLORIDE 0.9% IV 50 ML 100 ML IVPB (21:00)
[2025-07-07] MEDS: ATORVASTATIN 40 MG TABLET PO (21:00)
[2025-07-08] VITALS (12 sets, daily range): BP systolic 118–131; BP diastolic 53–70; PULSE 67–80; RESP 16–20; TEMP 36.6–36.9; O2SAT 95–98
[2025-07-08] MEDS: IPRATROPIUM 0.5 MG/ALBUTEROL SULFATE 2.5 MG (BASE) AMPUL.NEB 3 ML INHALATION ×4 (02:13→20:35)
[2025-07-08] MEDS: LEVOTHYROXINE SODIUM 88 MCG TABLET PO (05:53)
[2025-07-08] MEDS: ASPIRIN 81 MG ENTERIC TABLET PO (09:53)
[2025-07-08] MEDS: FUROSEMIDE 20 MG TABLET PO (09:53)
[2025-07-08] MEDS: DONEPEZIL HCL 10 MG TABLET PO (09:53)
[2025-07-08] MEDS: OPTI-GEN TAB 1 TABLET PO (09:53)
[2025-07-08] MEDS: MEMANTINE 10 MG TABLET 20 MG PO (09:53)
[2025-07-08] MEDS: FENOFIBRATE 145 MG TABLET PO (09:53)
[2025-07-08] MEDS: ISOSORBIDE MONONITRATE 30 MG TAB.ER.24H PO (09:53)
[2025-07-08] MEDS: METOPROLOL SUCCINATE EXT REL 25 MG TABCR PO (09:54)
--- NOTE | 2025-07-08 11:21 | PM.IMPN ---
Progress Note: A&P Assessment and Plan (1) CHF (congestive heart failure): Qualifiers: Heart failure type: unspecified Heart failure chronicity: acute Qualified Code(s): I50.9 - Heart failure, unspecified Code(s): I50.9 - Heart failure, unspecified Status: Acute Assessment and Plan: Presents from home with family with increased dyspnea on exertion and cough for the past 2 days. Family states patient is more tired than usual. Chest x-ray moderate pulmonary venous congestion-CHF - BNP and 1979 - most recent echo on 10/08/24 revealed EF 50-55%, grade 1 diastolic dysfunction, LA moderately enlarged, mitral valve annulus is severely calcified, mild mitral and tricuspid regurg. - currently on: 20 mg p.o. Lasix - monitor I&Os and daily weights - 40 mg IVP Lasix x1 - resume home dose on 07/07 - monitor respiratory status - trend renal function - not requiring supplemental O2 07/08/2025 will continue with diuresis and monitor closely. Possible discharge in the morning. (2) Dementia: Qualifiers: Dementia type: Alzheimer's Alzheimer's disease onset: unspecified onset Dementia severity: unspecified severity Dementia behavioral or psychological symptom: unspecified whether behavioral, psychotic, or mood disturbance or anxiety Qualified Code(s): G30.9 - Alzheimer's disease, unspecified; F02.80 - Dementia in other diseases classified elsewhere, unspecified severity, without behavioral disturbance, psychotic disturbance, mood disturbance, and anxiety Code(s): F03.90 - Unspecified dementia, unspecified severity, without behavioral disturbance, psychotic disturbance, mood disturbance, and anxiety Status: Chronic Assessment and Plan: Continue Namenda and Aricept (3) Leukocytosis: Qualifiers: Leukocytosis type: unspecified Qualified Code(s): D72.829 - Elevated white blood cell count, unspecified Code(s): D72.829 - Elevated white blood cell count, unspecified Status: Acute Assessment and Plan: Patient afebrile without concern for pneumonia on chest x-ray. Most likely urine tract infection. Culture pending. (4) Hypertension: Qualifiers: Hypertension type: primary hypertension Qualified Code(s): I10 - Essential (primary) hypertension Code(s): I10 - Essential (primary) hypertension Status: Chronic Assessment and Plan: BP has been soft. Initial BP 98/60. Systolic blood pressure has largely remained in the 90s with diastolics in the 40s and 50s. Maps in the high 50s to low 60s -continue lisinopril, metoprolol on 07/07 pending blood pressure -hold isosorbide and nifedipine for now to allow room for diuresis -consider deescalating antihypertensives (5) Dyslipidemia: Code(s): E78.5 - Hyperlipidemia, unspecified Status: Acute Assessment and Plan: Continue Lipitor, fenofibrate Plan Diet: Heart healthy GI prophylaxis: NA DVT prophylaxis: Heparin subcutaneous lines/drains: PIV Code status: DNR Subjective Date/time seen: 07/08/25 11:21 Interval history: Patient was seen during the morning rounds today. Pending slightly better. Mild shortness of breath, no chest pain. No abdominal pain, nausea, no vomiting. Review of Systems Review of Systems: All systems reviewed & are unremarkable except as noted in HPI and below Exam Narrative: GENERAL: non-toxic appearing, in no acute distress. HEAD: Normocephalic, atraumatic. EYES: PERRLA. Conjunctivae clear. NOSE: Normal no drainage. THROAT: Pharynx clear, no exudate. NECK: Trachea midline. No adenopathy, no masses. RESPIRATORY: Airway patent, mildly tachypneic. Coarse lung sounds bilaterally CARDIOVASCULAR: Regular rate and rhythm BREASTS: Defer GASTROINTESTINAL: Abdomen is soft and nontender. No organomegaly. Bowel sounds normal in all quadrants. GENITOURINARY: PureWick in place MUSCULOSKELETAL: Moves all extremities. No gross deformities. SKIN: Warm, dry, normal color. NEURO: A&O X2. Speech clear. PSYCHIATRIC: Normal interaction Objective Data Vital Signs Vital Signs: Vital Signs - 24 hr 07/07/25 13:53 07/07/25 14:03 07/07/25 16:00 Temperature 36.7 C Pulse Rate 80 72 72 Respiratory Rate 20 20 17 Blood Pressure 124/73 Pulse Oximetry 97 Oxygen Delivery 07/07/25 20:00 07/07/25 20:08 07/07/25 20:08 Temperature Pulse Rate 72 Respiratory Rate 16 Blood Pressure Pulse Oximetry 94 Oxygen Delivery Room Air Room Air 07/07/25 20:14 07/07/25 20:46 07/08/25 02:14 Temperature 37.5 C Pulse Rate 79 70 77 Respiratory Rate 16 20 16 Blood Pressure 128/55 L Pulse Oximetry 97 Oxygen Delivery 07/08/25 02:19 07/08/25 07:51 07/08/25 07:52 Temperature 36.6 C Pulse Rate 73 67 Respiratory Rate 16 18 Blood Pressure 131/57 L Pulse Oximetry 98 95 Oxygen Delivery Room Air 07/08/25 07:52 07/08/25 07:57 07/08/25 09:54 Temperature Pulse Rate 73 79 72 Respiratory Rate 17 17 Blood Pressure Pulse Oximetry Oxygen Delivery Intake/Output Intake/Output: Intake & Output 07/05/25 07/06/25 07/07/25 07/08/25 23:59 23:59 23:59 23:59 Intake Total 940 964 774 Output Total 650 750 Balance 290 214 774 Meds/Results Medications: Active Medications Generic Name Dose Route Start Last Admin Trade Name Freq PRN Reason Stop Dose Admin Acetaminophen 650 mg 07/07/25 06:35 Acetaminophen 325 Mg Tablet PO Q4H PRN Mild Pain (1-3) or Fever Albuterol/Ipratropium 3 ml 07/07/25 02:00 07/08/25 07:52 Ipratropium 0.5 Mg/Albuterol Sulfate 2.5 Mg (Base) Ampul.Neb 3 Ml INHALATION 3 ml Q6HRT WEN Administration Alendronate Sodium 70 mg 07/07/25 06:30 07/07/25 06:03 Alendronate Sodium 70 Mg Tablet PO 70 mg WEEKLY@0630 WEN Administration Aspirin 81 mg 07/07/25 09:00 07/08/25 09:53 Aspirin 81 Mg Enteric Tablet PO 81 mg DAILY WEN Administration Atorvastatin Calcium 40 mg 07/06/25 21:00 07/07/25 21:00 Atorvastatin 40 Mg Tablet PO 40 mg QHS WEN Administration Donepezil HCl 10 mg 07/07/25 09:00 07/08/25 09:53 Donepezil Hcl 10 Mg Tablet PO 10 mg DAILY WEN Administration Fenofibrate 145 mg 07/07/25 09:00 07/08/25 09:53 Fenofibrate 145 Mg Tablet PO 145 mg QAM WEN Administration Furosemide 20 mg 07/07/25 09:00 07/08/25 09:53 Furosemide 20 Mg Tablet PO 20 mg DAILY WEN Administration Heparin Sodium (Porcine) 5,000 units 07/06/25 14:00 07/08/25 05:53 Heparin Sodium 5,000 Units/Ml Vial SUB-Q 5,000 units Q8HR WEN Administration Ceftriaxone Sodium 1 gm/ 50 mls @ 100 mls/hr 07/06/25 21:40 07/07/25 21:00 Sodium Chloride IVPB 100 mls/hr HS WEN Administration Isosorbide Mononitrate 30 mg 07/07/25 09:00 07/08/25 09:53 Isosorbide Mononitrate 30 Mg Tab.Er.24h PO 30 mg DAILY WEN Administration Levothyroxine Sodium 88 mcg 07/07/25 06:30 07/08/25 05:53 Levothyroxine Sodium 88 Mcg Tablet PO 88 mcg DAILY@0630 WEN Administration Lisinopril 10 mg 07/07/25 09:00 07/08/25 09:53 Lisinopril 10 Mg Tablet PO 10 mg DAILY WEN Administration Memantine 20 mg 07/07/25 09:00 07/08/25 09:53 Memantine 10 Mg Tablet PO 20 mg DAILY WEN Administration Metoprolol Succinate 25 mg 07/07/25 09:00 07/08/25 09:54 Metoprolol Succinate Ext Rel 25 Mg Tabcr PO 25 mg DAILY WEN Administration Multivitamins/Minerals 1 tablet 07/08/25 09:00 07/08/25 09:53 Opti-Gen Tab PO 1 tablet QAM WEN Administration Nifedipine 30 mg 07/07/25 09:00 07/08/25 09:54 Nifedipine 30 Mg Tab.Er.24 PO 30 mg DAILY WEN Administration Radiology Results: ITS Impressions Chest X-Ray 07/06/25 11:03 Impression: CHF Quality VTE Prophylaxis VTE prophylaxis: pharmacologic ordered
[2025-07-08] MEDS: ATORVASTATIN 40 MG TABLET PO (20:12)
[2025-07-08] MEDS: cefTRIAXone 1 GM in SODIUM CHLORIDE 0.9% IV 50 ML 100 ML IVPB (20:12)
[2025-07-09] VITALS (7 sets, daily range): BP systolic 111; BP diastolic 68; PULSE 63–84; RESP 18–20; TEMP 35.9; O2SAT 95
[2025-07-09] MEDS: IPRATROPIUM 0.5 MG/ALBUTEROL SULFATE 2.5 MG (BASE) AMPUL.NEB 3 ML INHALATION ×2 (02:26→07:33)
[2025-07-09] MEDS: LEVOTHYROXINE SODIUM 88 MCG TABLET PO (05:36)
[2025-07-09] MEDS: MEMANTINE 10 MG TABLET 20 MG PO (08:29)
[2025-07-09] MEDS: METOPROLOL SUCCINATE EXT REL 25 MG TABCR PO (08:29)
[2025-07-09] MEDS: ASPIRIN 81 MG ENTERIC TABLET PO (08:29)
[2025-07-09] MEDS: ISOSORBIDE MONONITRATE 30 MG TAB.ER.24H PO (08:29)
[2025-07-09] MEDS: FENOFIBRATE 145 MG TABLET PO (08:29)
[2025-07-09] MEDS: FUROSEMIDE 20 MG TABLET PO (08:29)
[2025-07-09] MEDS: OPTI-GEN TAB 1 TABLET PO (08:29)
[2025-07-09] MEDS: DONEPEZIL HCL 10 MG TABLET PO (08:29)
--- NOTE | 2025-07-09 09:02 | PM.DS ---
DS: Admitting Diagnosis Discharge Date 07/09/2025 Admitting Diagnosis Acute on chronic systolic Congestive heart failure DS: Discharge Diagnosis Discharge Diagnosis (1) CHF (congestive heart failure): Qualifiers: Heart failure type: unspecified Heart failure chronicity: acute Qualified Code(s): I50.9 - Heart failure, unspecified Code(s): I50.9 - Heart failure, unspecified Status: Acute Assessment and Plan: Presents from home with family with increased dyspnea on exertion and cough for the past 2 days. Family states patient is more tired than usual. Chest x-ray moderate pulmonary venous congestion-CHF - BNP and 1979 - most recent echo on 10/08/24 revealed EF 50-55%, grade 1 diastolic dysfunction, LA moderately enlarged, mitral valve annulus is severely calcified, mild mitral and tricuspid regurg. - currently on: 20 mg p.o. Lasix - monitor I&Os and daily weights - 40 mg IVP Lasix x1 - resume home dose on 07/07 - monitor respiratory status - trend renal function - not requiring supplemental O2 07/08/2025 will continue with diuresis and monitor closely. Possible discharge in the morning. (2) Dementia: Qualifiers: Dementia type: Alzheimer's Alzheimer's disease onset: unspecified onset Dementia severity: unspecified severity Dementia behavioral or psychological symptom: unspecified whether behavioral, psychotic, or mood disturbance or anxiety Qualified Code(s): G30.9 - Alzheimer's disease, unspecified; F02.80 - Dementia in other diseases classified elsewhere, unspecified severity, without behavioral disturbance, psychotic disturbance, mood disturbance, and anxiety Code(s): F03.90 - Unspecified dementia, unspecified severity, without behavioral disturbance, psychotic disturbance, mood disturbance, and anxiety Status: Chronic Assessment and Plan: Continue Namenda and Aricept (3) Leukocytosis: Qualifiers: Leukocytosis type: unspecified Qualified Code(s): D72.829 - Elevated white blood cell count, unspecified Code(s): D72.829 - Elevated white blood cell count, unspecified Status: Acute Assessment and Plan: Patient afebrile without concern for pneumonia on chest x-ray. Most likely urine tract infection. Culture pending. (4) Hypertension: Qualifiers: Hypertension type: primary hypertension Qualified Code(s): I10 - Essential (primary) hypertension Code(s): I10 - Essential (primary) hypertension Status: Chronic Assessment and Plan: BP has been soft. Initial BP 98/60. Systolic blood pressure has largely remained in the 90s with diastolics in the 40s and 50s. Maps in the high 50s to low 60s -continue lisinopril, metoprolol on 07/07 pending blood pressure -hold isosorbide and nifedipine for now to allow room for diuresis -consider deescalating antihypertensives (5) Dyslipidemia: Code(s): E78.5 - Hyperlipidemia, unspecified Status: Acute Assessment and Plan: Continue Lipitor, fenofibrate Plan Diet: Heart healthy GI prophylaxis: NA DVT prophylaxis: Heparin subcutaneous lines/drains: PIV Code status: DNR DS: Summary Hospital Course Reason for hospitalization: Acute on chronic systolic congestive heart failure. Hospital Course: 85 years old female was admitted complained having shortness of breath. Patient was found to have acute on chronic systolic congestive Heart failure. Patient also have urinary tract infection. Patient was given diuretics and IV antibiotics. Culture shows Gram-negative bacteria. Today patient was placed on p.o. antibiotics. Will follow-up the culture report as an outpatient. Patient was discharged home in stable condition. Follow-up with the primary care scheduled. Status at Discharge Cognitive/behavioral status at discharge: Stable Time Spent with Patient Time attestation: Total time spent providing and/or coordinating discharge services: 30 minutes Exam Narrative: GENERAL: non-toxic appearing, in no acute distress. HEAD: Normocephalic, atraumatic. EYES: PERRLA. Conjunctivae clear. NOSE: Normal no drainage. THROAT: Pharynx clear, no exudate. NECK: Trachea midline. No adenopathy, no masses. RESPIRATORY: Airway patent, mildly tachypneic. Coarse lung sounds bilaterally CARDIOVASCULAR: Regular rate and rhythm BREASTS: Defer GASTROINTESTINAL: Abdomen is soft and nontender. No organomegaly. Bowel sounds normal in all quadrants. GENITOURINARY: PureWick in place MUSCULOSKELETAL: Moves all extremities. No gross deformities. SKIN: Warm, dry, normal color. NEURO: A&O X2. Speech clear. PSYCHIATRIC: Normal interaction DS: Data Data Completed and Pending Labs on day of discharge: Preliminary micro results at discharge 07/06/25 17:44 - Preliminary Unspecified Urine Gram negative bacilli isolated Discharge Plan Discharge Attending physician on discharge: Bradley Melgar Consulting providers: Nhan Potts Discharging Clinician: Bradley Melgar Patient Disposition: Home Activity: as tolerated Diet: as tolerated Patient Instructions: Antibiotic Form, Heart Failure (DC), How to Stop Smoking (DC) Patient Language: Tuvaluan Stand Alone Forms: General Discharge Information Follow-up/Referrals: Nhan Potts MD [Physician, Family Practice] Discharge Medications: New levofloxacin 250 mg tablet 250 mg PO DAILY Qty: 7 0RF Continued alendronate 70 mg tablet 70 mg PO WEEKLY Patient Comments: takes on Wednesdays fenofibrate 160 mg tablet 160 mg PO DAILY donepezil 10 mg tablet 10 mg PO DAILY atorvastatin 40 mg tablet 40 mg PO QHS metoprolol succinate 25 mg tablet extended release 24 hr 25 mg PO DAILY nifedipine 30 mg tablet extended release 24hr 30 mg PO DAILY isosorbide mononitrate 30 mg tablet extended release 24 hr 30 mg PO DAILY levothyroxine 88 mcg tablet 88 mcg PO DAILY@0630 om [facility] 1 cap PO DAILY memantine 10 mg tablet 20 mg PO DAILY aspirin [Adult Low Dose Aspirin] 81 mg tablet,delayed release (DR/EC) 81 mg PO DAILY lisinopril 10 mg tablet 10 mg PO DAILY furosemide 20 mg Tablet 20 mg PO DAILY Qty: 30 0RF acetaminophen [8 Hour Pain Reliever] 650 mg tablet extended release 1,300 mg PO Q8H PRN (Reason: pain) Date of admission: 07/07/25 13:16 Primary Care Provider: PHYSICIAN NOT ON STAFF,NONSTAFF Admitting Provider: Shira Perry Attending physician on admission: Shira Perry Condition: Serious Quality VTE Prophylaxis VTE prophylaxis: pharmacologic ordered
== END 2025-07-09 11:38 | disposition home or self-care (01) | DRG 291 ==
LOC: ANHED 10:34 → ANHIMU 13:05 → ANH3MEDSUR 07-09 09:00 → ANHIMU 07-13 09:50
PROVIDERS: Nurse Practitioner Adult Health; Admitting Provider Internal Medicine; Emergency Provider Emergency Medicine; Visit Provider Internal Medicine
DX: I11.0 Hypertensive heart disease with heart failure (principal); I50.23 Acute on chronic systolic (congestive) heart failure; N39.0 Urinary tract infection, site not specified; B96.20 Unspecified Escherichia coli [E. coli] as the cause of diseases classified elsewhere; G30.9 Alzheimer's disease, unspecified; F02.80 Dementia in other diseases classified elsewhere, unspecified severity, without behavioral disturbance, psychotic disturbance, mood disturbance, and anxiety; D72.829 Elevated white blood cell count, unspecified; E78.5 Hyperlipidemia, unspecified; Z87.891 Personal history of nicotine dependence; Z79.82 Long term (current) use of aspirin; Z20.822 Contact with and (suspected) exposure to COVID-19
CPT/HCPCS: 36415; 71045; 80048; 80053; 81001; 82948; 83880; 84484; 85025; 85610; 85730; 87040; 87086; 87186; 87637; 93005; 94640; 96361; 96374; 96376; 99285; A9270; G0378; J0696; J1644; J1938; J7040